=== PATIENT | male | born 1950 | race Caucasian/White ===

== ENCOUNTER 2019-04-09 04:59 | Inpatient (IN) | payer MEDICARE ==
[~2019-04-09] VITALS: Ht 175.3 cm; Wt 76.2 kg
[~2019-04-09 04:59] MED LIST: ALBU90OI INH; AMIT75; AMOCLA500 PO; ASCO500; ATEN100; ATEN50 PO; BUPR100; BUPR150ER PO; Bactrim Ds Tab1 EACH PO; CARV6.25 PO; CELE100; CEPH500 PO; CITA20 PO; CLON.5; CLON1 PO; Cephalexin500 MG PO; DOXY100 PO; FOLI1; HYDCHL25; HYDMOR8 PO; IBUP800 PO; Keflex500 MG PO; LISHYD2012 PO; LISHYD2025 PO; LISI5 PO; METH10; METH10 PO; METH40; METHOTREXATE; METTREX2.5; METTREX2.5 PO; NAPR500 PO; NEOPOLHYD OD; NIAC500ER; Nix Lice Treatm59 ML TOP; OXYACE5T PO; OXYACE7.5T PO; OXYC10ER; OXYC20ER; OXYC30; OXYC30 PO; OXYC5 PO; PENVK500 PO; PRED10 PO; PRED20 PO; PROM25; REMICADE; RXCEPH500 PO; RXSULTRIDS PO; SULTRIDS PO; TOBR.3OPSO OS; Vistaril25 MG PO; Zestril40 MG PO
[2019-04-09 07:27] LABS: BASOPHILS ABSOLUTE AUTO 0.04 K/mm3 (0.00-0.23); BASOPHILS PERCENT AUTO 0 % (0-2); EOSINOPHILS ABSOLUTE AUTO 0.89 K/mm3 (0.00-0.68); EOSINOPHILS PERCENT AUTO 5 % (0-6); Hematocrit 33.5 % (37.0-53.0); Hemoglobin 10.5 g/dL (13.5-17.5); IMMATURE GRAN ABSOLUTE AUTO 0.08 K/mm3 (0.00-0.10); IMMATURE GRAN PERCENT AUTO 1 % (0-1); LYMPHOCYTES ABSOLUTE AUTO 1.95 K/mm3 (0.84-5.20); LYMPHOCYTES PERCENT AUTO 12 % (21-46); MONOCYTES ABSOLUTE AUTO 1.24 K/mm3 (0.16-1.47); MONOCYTES PERCENT AUTO 7 % (4-13); Mean Corpuscular HGB 27.6 pg (26.0-34.0); Mean Corpuscular HGB Conc 31.3 g/dL (31.5-36.5); Mean Corpuscular Volume 88 fL (80-100); Mean Platelet Volume 9.6 fL (9.1-12.4); NEUTROPHILS ABSOLUTE AUTO 12.63 K/mm3 (1.96-9.15); NEUTROPHILS PERCENT AUTO 75 % (41-73); Platelet Count 302 K/mm3 (150-400); RDW Coefficient Variation 16.8 % (11.7-14.2); RDW Standard Deviation 54.6 fL (35.1-46.3); White Blood Cell Count 16.83 K/mm3 (4.00-11.30)
[2019-04-09 07:46] LABS: Albumin, Blood 2.4 g/dL (3.4-5.0); Albumin/Globulin Ratio 0.5 (0.8-1.8); Bilirubin, Total 0.1 mg/dL (0.1-1.0); Bun/Creatinine Ratio 19.9 (12.0-20.0); Calcium, Blood 7.8 mg/dL (8.5-10.1); Creatinine, Blood 1.36 mg/dL (0.60-1.20); Globulin, Blood 4.7 g/dL (2.2-4.0); Potassium, Blood 4.1 mmol/L (3.5-5.5); Total Protein, Blood 7.1 g/dL (6.4-8.2)
[2019-04-09 09:28] LABS: Percent Saturation 8.8 % (20.0-50.0)
[2019-04-09] MEDS ORDERED: CITA20 PO (12:25)
[2019-04-09] MEDS ORDERED: CARV25 PO (12:25)
--- NOTE | 2019-04-09 13:08 | NUR ---
CALLED PROVIDER CONSULT TO DERMATOLOGY, LEFT MESSAGE OFFICE IS CLOSED TODAY REQUESTED A CALL BACK TOMORROW MORNING.
--- NOTE | 2019-04-09 16:00 | NUR ---
SPOKE TO DR FORD- HE IS AWARE OF THE PT HOME USE OF ILLEGAL SUBSTANCES (PT STATES HEROIN). REQUESTED PAIN MEDCATION, MEDICATED WITH 2 NORCO, Q4 PER EMAR. DURG SCREENING ORDERED.
[2019-04-09 17:15] LABS: U Amphetamine Screen DETECTED; U Barbituate Screen Not Detected; U Benzodiazapine Screen Not Detected; U Buprenorphine Screen Not Detected; U Cannabinoids Screen Not Detected; U Cocaine Screen Not Detected; U Methadone Screen Not Detected; U Methamphetamine Screen DETECTED; U Opiates Screen DETECTED; U Oxycodone Screen Not Detected; U Phencyclidine Screen Not Detected; U Propoxyphene Screen Not Detected
--- NOTE | 2019-04-09 17:53 | NUR ---
CALLED DR FORD- PT BP ELEVATED ON ARRIVALSBP 175, SBP 188 ON RECHECK RECIEVED ORDER TO START HOME DOSE CARVEDILOL NOW AND FOR PRN HYDRALIZINE. PAIN IS OUT OF PERPORTION AT THIS TIME WILL MEDICATE PRN FOR PAIN WELL START TONIGHTS ANTIBIOTICS. PT ALERT AND ORIENTED, TOLD NURSING STAFF HE USES HEROIN TWICE A DAY SUB Q TO CONTROL HIS PAIN. DR IS AWARE URINE TOX SCREEN CAME BACK POSSITIVE FOR METH, ANPHETAMINES, AND OPIATES.
--- NOTE | 2019-04-09 18:00 | NUR ---
PT WANTS TO LEAVE AMA. PT STATES THE PAIN IS TOO MUCH AND HE WANTS TO GO DEAL WITH IT ON HIS OWN. PT IS SHAKING AND ROCKING AND ANGRY WITH STAFF. SPOKE TO DR FORD, AMA FORM FILLED OUT. PT SPOKE TO HIS SPOUSE WHO REQUESTED THAT STAFF TRY TO GET A DIFFERENT FORM OF PAIN MEDICATION. PT RECIEVED NORCO AND BP MEDICATION AND ALLOWED STAFF TO START IV ANTIBIOTICS.
--- NOTE | 2019-04-09 19:19 | NUR ---
SHIFT SUMMARY PT ADMITTED VIA ER AT 1230 FOR CELLULITIS. PT HAS SEVERE SKIN CONDITION UBE AND BLE. PT STATES THAT HE USES HEROIN SUBCUT TWO TIMES A DAY TO MANAGE PAIN AT HOME AND ALSO HAS RHEUMATOID ARTHRITIS. CONTACTED PROVIDER REGARDING INCREASED NEED FOR PAIN MEDS BECAUSE PT WAS IN SEVERE PN AND WANTED TO LEAVE AMA. RECIEVED ORDERS FOR INCREASED PN MEDS. LAST PN ASSESSMENT WAS 5 OUT OF TEN. BED LEFT IN LOW AND LOCKED POSITION AND CALL LIGHT WITHIN REACH. RACHNA PENDLETON GAVE CHANGE OF SHIFT REPORT TO AMISH PENDLETON.
--- NOTE | 2019-04-10 06:44 | NUR ---
SHIFT SUMMARY PT ANXIOUS IRRITABLE ABOUT PAIN MEDS. REQUIRING 2MG OF DILAUDID EVERY 2HRS AND PAIN GOES FROM 06/17 TO 03/17. DID NOT SLEEP THE WHOLE NIGHT, ONLY VERY LIGHT DOZING ON AND OFF. VERY DEFENSIVE AND STATES HE DIDN'T GET PAIN MEDS AFTER RECEIVING THEM SAYING IT WAS ONLY "SALINE". CALL LIGHT IN REACH.
[2019-04-10 09:08] LABS: BASOPHILS ABSOLUTE AUTO 0.03 K/mm3 (0.00-0.23); BASOPHILS PERCENT AUTO 0 % (0-2); EOSINOPHILS PERCENT AUTO 0 % (0-6); Hematocrit 30.4 % (37.0-53.0); Hemoglobin 9.6 g/dL (13.5-17.5); IMMATURE GRAN ABSOLUTE AUTO 0.14 K/mm3 (0.00-0.10); IMMATURE GRAN PERCENT AUTO 1 % (0-1); LYMPHOCYTES ABSOLUTE AUTO 1.34 K/mm3 (0.84-5.20); LYMPHOCYTES PERCENT AUTO 7 % (21-46); MONOCYTES ABSOLUTE AUTO 0.85 K/mm3 (0.16-1.47); MONOCYTES PERCENT AUTO 4 % (4-13); Mean Corpuscular HGB 27.2 pg (26.0-34.0); Mean Corpuscular HGB Conc 31.6 g/dL (31.5-36.5); Mean Corpuscular Volume 86 fL (80-100); Mean Platelet Volume 10.2 fL (9.1-12.4); NEUTROPHILS PERCENT AUTO 88 % (41-73); Platelet Count 276 K/mm3 (150-400); RDW Coefficient Variation 16.6 % (11.7-14.2); RDW Standard Deviation 51.8 fL (35.1-46.3); Red Blood Cell Count 3.53 M/mm3 (4.30-5.90); White Blood Cell Count 19.76 K/mm3 (4.00-11.30)
[2019-04-10 09:40] LABS: Alanine Aminotransfer (ALT/SGP 13 U/L (12-78); Albumin, Blood 2.4 g/dL (3.4-5.0); Albumin/Globulin Ratio 0.5 (0.8-1.8); Alk Phos 92 U/L (50-136); Anion Gap 5 mmol/L (6-16); Aspartate Aminotrans (AST/SGOT 7 U/L (12-37); Bilirubin, Total 0.4 mg/dL (0.1-1.0); Blood Urea Nitrogen 19 mg/dL (8-24); Bun/Creatinine Ratio 21.4 (12.0-20.0); CO2, Blood 25 mmol/L (21-32); Calcium, Blood 8.2 mg/dL (8.5-10.1); Chloride, Blood 109 mmol/L (98-108); Creatinine, Blood 0.89 mg/dL (0.60-1.20); Globulin, Blood 4.9 g/dL (2.2-4.0); Glomerular Filtration Rate >60 (60-); Glucose, Blood 116 mg/dL (70-99); Potassium, Blood 4.1 mmol/L (3.5-5.5); Sodium, Blood 139 mmol/L (136-145); Total Protein, Blood 7.3 g/dL (6.4-8.2)
--- NOTE | 2019-04-10 17:12 | NUR ---
SHIFT SUMMARY- PT AXO X3. PT C/O SEVERE BLE PAIN. MEDS GIVEN PER EMAR. PT DENIES SOB. RESP E/U ON RA. DENIES N/V. DR. BENJAMIN WISE IN TO SEE PT TODAY. DR. WISE REPORTS SHE WILL RETURN LATER TODAY OR TOMORROW AM WITH THE TOOLS NEEDED TO RULE OUT SCABBIES. 1 ASSIST TO THE BSC. NO OTHER SIGNIFICANT CHANGES THIS SHIFT.
[2019-04-11 04:47] LABS: BASOPHILS ABSOLUTE AUTO 0.03 K/mm3 (0.00-0.23); BASOPHILS PERCENT AUTO 0 % (0-2); EOSINOPHILS ABSOLUTE AUTO 0.02 K/mm3 (0.00-0.68); EOSINOPHILS PERCENT AUTO 0 % (0-6); Hematocrit 30.3 % (37.0-53.0); Hemoglobin 9.7 g/dL (13.5-17.5); IMMATURE GRAN ABSOLUTE AUTO 0.11 K/mm3 (0.00-0.10); IMMATURE GRAN PERCENT AUTO 1 % (0-1); LYMPHOCYTES ABSOLUTE AUTO 2.01 K/mm3 (0.84-5.20); LYMPHOCYTES PERCENT AUTO 9 % (21-46); MONOCYTES ABSOLUTE AUTO 1.44 K/mm3 (0.16-1.47); MONOCYTES PERCENT AUTO 7 % (4-13); Mean Corpuscular HGB 27.8 pg (26.0-34.0); Mean Corpuscular Volume 87 fL (80-100); Mean Platelet Volume 9.5 fL (9.1-12.4); NEUTROPHILS ABSOLUTE AUTO 18.41 K/mm3 (1.96-9.15); NEUTROPHILS PERCENT AUTO 84 % (41-73); Platelet Count 254 K/mm3 (150-400); RDW Coefficient Variation 16.9 % (11.7-14.2); RDW Standard Deviation 53.9 fL (35.1-46.3); Red Blood Cell Count 3.49 M/mm3 (4.30-5.90); White Blood Cell Count 22.02 K/mm3 (4.00-11.30)
[2019-04-11 05:09] LABS: Albumin, Blood 2.3 g/dL (3.4-5.0); Anion Gap 4 mmol/L (6-16); Blood Urea Nitrogen 19 mg/dL (8-24); Bun/Creatinine Ratio 20.4 (12.0-20.0); CO2, Blood 28 mmol/L (21-32); Chloride, Blood 107 mmol/L (98-108); Creatinine, Blood 0.93 mg/dL (0.60-1.20); Glomerular Filtration Rate >60 (60-); Glucose, Blood 73 mg/dL (70-99); Phosphorus, Blood 2.2 mg/dL (2.5-4.9); Potassium, Blood 3.7 mmol/L (3.5-5.5); Sodium, Blood 139 mmol/L (136-145)
--- NOTE | 2019-04-11 05:40 | NUR ---
SHIFT SUMMARY: PT ARRIVED AT END OF DAY SHIFT. HE WAS ALERT AND ORIENTED WITH FREQUENT SHORT PERIODS OF CONFUSION T/O THE NOC SHIFT. HX OF COPD, AND CHRONIC UTI'S. COMES IN FROM [facility]. MOTHER AND BROTHER WERE IN FOR SHORT PERIOD OF TIME DURING THE BEGINING OF SHIFT AND PLAN TO ARRIVE IN THE MORNING. PT WAS HUNGRY AT BEGINNING OF SHIFT AND ATE SOME SNACKS PRIOR TO MEDICATIONS. ADMISSION ASSESSMENT WAS COMPLETED. LUNG SOUNDS CLEAR T/O, WITH OCCATIONAL DRY COUGH. DENIED SOB. NO CARDIAC ISSUES TO NOTE. VS WNL T/O SHIFT AND NO PAIN. IV FLUIDS WERE STARTED AND INFUSED WELL T/O THE NIGHT INTO A 22G RIGHT HAND. WOUNDS ARE NOTED AND DOCUMENTED TO THE GREAT RIGHT TOE, FROM RUNNING INTO SOMETHING. WOUND IS SMALL MEASURES 0.25 X 0.25, WOUND HAS HYPERGRANULATION TISSUE, EDGES PINK WITH BRUISING NOTED AROUND AND ON THE SECOND TOE. WOUNDS ALSO ON COCCYX SHALLOW PINK MEASURES AN ESTIMATE OF 1 X 0.5 X 0.1 SURROUNDING TISSUE IS RED BUT BLANCHABLE. DRESSING WAS APPLIED ON TOE ONLY COCCYX WOUND IS MORE ON THE RIGHT NEAR ANAL OPENING, SO BARRIER CREAM IS SUGGESTED. CATHETER PATIENT WITH CLOUDY MUCUS LIKE URINE, SEDIMENT. ENCOURAGED HIM TO DRINK FLUIDS, HE HAS A HISTORY OF POOR INTAKE. AFTER BEDTIME MEDS HE SLEPT WELL THROUGHOUT THE NIGHT, AND DID NOT WANT TO BE DISTURBED UNTIL THIS AM. WILL REPORT TO DAY SHIFT RN.
--- NOTE | 2019-04-11 06:23 | NUR ---
SHIFT SUMMARY: PT WAS RESTING IN BED WATCHING TV MOST OF NIGHT. WAS COOPERATIVE AND PLEASANT UP TO THIS AM. VS WNL T/O SHIFT. PAIN WAS REPORTED ON THE DOT EVERY 2 HOURS FOR HIS DILAUDID. HE STATES THE PAIN IS IN HIS HANDS AND FEET. DENIED THIS RN FROM DOING ANYTHING TO HIS LEG CELLULITIS. LEFT LOWER LEG AND FOOT HAVE DRY CRACKING SKIN THAT IS PAINFUL. MULTIPLE CRACKS NOTED AROUND THE ANKLE. HE ALSO HAS CRACKING SKIN TO BILATERAL HANDS AND FA. SOAKED BILATERAL HANDS WITH WARM WATER AND MILD SOAP. TOWEL DRIED AND APPLIED BARRIER CREAM.THIS HELPED FOR SHORT PERIOD OF TIME, BUT THEN HE REPORTED THAT HE DRIED UP TO QUICK AND WANTED LOTION REAPPLIED BACK ON HANDS. THERE IS MULTIPLE CRACKS AND OPEN AREAS ON BILATERAL HANDS. HE DID COMPLAIN THAT PAIN MEDS DID NOT WORK WELL T/O THE NIGHT THAT HE WAS NOT GETTING THE JOHNSON AND WANTED ME TO FAST PUSH STRAIGHT THE PAIN MEDS, INFORMED HE THAT IS NOT HOW I WAS TAUGHT. HE WAS NOT PLEASED, BUT TOOK THE MEDS ANY WAY HE COULD GET THEM. NO OTHER ACUTE CHANGES WERE NOTED. WILL REPORT TO DAY SHIFT RN.
[2019-04-11 14:34] LABS: Vancomycin, Trough 8.5 ug/mL (5.0-10.0)
--- NOTE | 2019-04-11 17:39 | NUR ---
SUMMARY PT SITTING UP IN BED EATING HIS DINNER, PT HAS BEEN COOPERATIVE WITH [facility], PT MED FOR PAIN PER EMAR FREQUENTLY, PT WAS OFFERED A SHOWER SEVERAL TIMES BUT DECLINED, PT'S LLE SOAKED WITH A WARM WASHCLOTH AND COVERED LIBERALLY WITH CREAM, VSS, NO ACUTE CHANGES, WILL CONT TO MONITOR
[2019-04-12 05:17] LABS: BASOPHILS ABSOLUTE AUTO 0.02 K/mm3 (0.00-0.23); BASOPHILS PERCENT AUTO 0 % (0-2); EOSINOPHILS ABSOLUTE AUTO 0.04 K/mm3 (0.00-0.68); EOSINOPHILS PERCENT AUTO 0 % (0-6); Hematocrit 33.2 % (37.0-53.0); Hemoglobin 10.7 g/dL (13.5-17.5); IMMATURE GRAN PERCENT AUTO 1 % (0-1); LYMPHOCYTES ABSOLUTE AUTO 2.16 K/mm3 (0.84-5.20); LYMPHOCYTES PERCENT AUTO 12 % (21-46); MONOCYTES ABSOLUTE AUTO 1.36 K/mm3 (0.16-1.47); MONOCYTES PERCENT AUTO 7 % (4-13); Mean Corpuscular HGB 28.1 pg (26.0-34.0); Mean Corpuscular HGB Conc 32.2 g/dL (31.5-36.5); Mean Corpuscular Volume 87 fL (80-100); Mean Platelet Volume 9.5 fL (9.1-12.4); NEUTROPHILS ABSOLUTE AUTO 14.83 K/mm3 (1.96-9.15); NEUTROPHILS PERCENT AUTO 80 % (41-73); Platelet Count 253 K/mm3 (150-400); RDW Standard Deviation 54.2 fL (35.1-46.3); Red Blood Cell Count 3.81 M/mm3 (4.30-5.90); White Blood Cell Count 18.51 K/mm3 (4.00-11.30)
[2019-04-12 05:43] LABS: Albumin, Blood 2.4 g/dL (3.4-5.0); Anion Gap 5 mmol/L (6-16); Blood Urea Nitrogen 19 mg/dL (8-24); Bun/Creatinine Ratio 20.3 (12.0-20.0); CO2, Blood 28 mmol/L (21-32); Chloride, Blood 105 mmol/L (98-108); Creatinine, Blood 0.94 mg/dL (0.60-1.20); Glomerular Filtration Rate >60 (60-); Glucose, Blood 73 mg/dL (70-99); Phosphorus, Blood 2.7 mg/dL (2.5-4.9); Potassium, Blood 3.6 mmol/L (3.5-5.5); Sodium, Blood 138 mmol/L (136-145)
--- NOTE | 2019-04-12 07:14 | NUR ---
SHIFT SUMMARY: PATIENT REMAINED COOPERATIVE AND PLEASANT. HE DID NOT HAVE ANY ACUTE CHANGES OR CONCERNS. PATIENT DID CONTINUE TO PULL THE SKIN OFF HIS ARMS AND HANDS. HE WOULD NOT STOP. HAD APPLIED THE LOTION MULTIPLE TIMES. MEDICATED FOR PAIN EVERY 2 HOURS ON THE DOT PER ALEX VASQUEZ. DID REPORT PERIODS OF DIARRHEA SO HELD THE STOOL SOFTNER. NO OTHER ACUTE CHANGES TO NOTE, WILL REPORT TO ONCOMING RN.
[2019-04-12 16:14] LABS: Vancomycin, Trough 20.2 ug/mL (5.0-10.0)
--- NOTE | 2019-04-12 18:32 | NUR ---
SUMMARY PT SITTING UP IN BED WATCHING TV, PT HAS BEEN MED PER EMAR FOR PAIN FREQUENTLY, THIS EVENING HIS IV GOT PULLED OUT ACCIDENTALLY, IV MEDS HAVE BEEN CHANGED TO PO, PLAN IS TO DC IN AM, WILL CONT TO MONITOR
--- NOTE | 2019-04-12 20:03 | NUR ---
SHIFT CHANGE: PATIENT RESTING IN BED WATCHING TV. STATES HE IS FEELING OK, WANTS PAIN MEDS PAIN IS MORE ELEVATED THEN USUAL DUE TO PULLING IV OUT, STATES HE WISHED HE DIDNT DO THAT. STARTED TO DISCUSS PLAN FOR DISCHARGE AND PAIN MANAGMENT AT HOME, THAT AN IV MED IS NOT THE OPTION, SWITCHING TO PO MEDS WILL HELP HIM ADJUST. HE AGREED. STATES HE WILL LIKE A SHOWER TONIGHT. WILL INFORM NURSE PRACTITIONER MANAGER. PATIENT CONTINUES TO PICK AT THIS ARMS AND HANDS, ENCOURAGED HIM TO LET THEM HEAL ON THEIR OWN AND TO APPLY LOTION PRN. HE STATES HE CAN NOT STAND IT AND HAS TO GET THE DRY SKIN OFF. GAVE LOTION AND MEDS PER EMAR ALONG WITH PAIN MEDS. HE LAID BACK DOWN TO WATCH TV.
[2019-04-13 05:08] LABS: BASOPHILS ABSOLUTE AUTO 0.05 K/mm3 (0.00-0.23); BASOPHILS PERCENT AUTO 0 % (0-2); EOSINOPHILS ABSOLUTE AUTO 0.55 K/mm3 (0.00-0.68); EOSINOPHILS PERCENT AUTO 4 % (0-6); Hematocrit 37.7 % (37.0-53.0); Hemoglobin 11.6 g/dL (13.5-17.5); IMMATURE GRAN ABSOLUTE AUTO 0.13 K/mm3 (0.00-0.10); IMMATURE GRAN PERCENT AUTO 1 % (0-1); LYMPHOCYTES ABSOLUTE AUTO 1.97 K/mm3 (0.84-5.20); LYMPHOCYTES PERCENT AUTO 13 % (21-46); MONOCYTES ABSOLUTE AUTO 1.31 K/mm3 (0.16-1.47); MONOCYTES PERCENT AUTO 9 % (4-13); Mean Corpuscular HGB 27.1 pg (26.0-34.0); Mean Corpuscular HGB Conc 30.8 g/dL (31.5-36.5); Mean Corpuscular Volume 88 fL (80-100); Mean Platelet Volume 9.6 fL (9.1-12.4); NEUTROPHILS ABSOLUTE AUTO 11.34 K/mm3 (1.96-9.15); NEUTROPHILS PERCENT AUTO 74 % (41-73); Platelet Count 236 K/mm3 (150-400); RDW Coefficient Variation 17.2 % (11.7-14.2); RDW Standard Deviation 55.6 fL (35.1-46.3); Red Blood Cell Count 4.28 M/mm3 (4.30-5.90); White Blood Cell Count 15.35 K/mm3 (4.00-11.30)
[2019-04-13 05:24] LABS: Albumin, Blood 2.5 g/dL (3.4-5.0); Anion Gap 9 mmol/L (6-16); Blood Urea Nitrogen 24 mg/dL (8-24); Bun/Creatinine Ratio 19.7 (12.0-20.0); CO2, Blood 25 mmol/L (21-32); Calcium, Blood 7.8 mg/dL (8.5-10.1); Chloride, Blood 105 mmol/L (98-108); Creatinine, Blood 1.22 mg/dL (0.60-1.20); Glomerular Filtration Rate >60 (60-); Glucose, Blood 88 mg/dL (70-99); Phosphorus, Blood 3.9 mg/dL (2.5-4.9); Potassium, Blood 3.8 mmol/L (3.5-5.5); Sodium, Blood 139 mmol/L (136-145)
--- NOTE | 2019-04-13 06:08 | NUR ---
SHIFT SUMMARY: PATIENT RESTED OFF AND ON THROUGHOUT THE NIGHT, MEDICATED PER EMAR WITH PAIN MEDS EVERY 2 HOURS ON HIS REQUEST. HE DID HAVE AN 2 HOUR SHOWER AROUND 0100. WHICH HE APPARENTLY HAD TRIED TO REMOVE ALL THE DRIED SKIN OFF HIS HANDS AND ARMS, AND FEET. AGAIN ENCOURAGED HIM TO ALLOW NATURAL HEALING BUT HE CONTINUED. HE HAD NO ACUTE CHANGES OR CONCERNS THIS SHIFT. WILL REPORT TO ONCOMING SHIFT.
[2019-04-13] MEDS ORDERED: Bactrim Ds Tab1 EACH PO (09:25)
[2019-04-13] MEDS ORDERED: ACET325 PO (09:25)
[2019-04-13] MEDS ORDERED: Augmentin 875-1 EACH PO (09:25)
[2019-04-13] MEDS ORDERED: BISA5EC PO (09:26)
[2019-04-13] MEDS ORDERED: ASCO500 PO (09:26)
[2019-04-13] MEDS ORDERED: Triamcinolone A15 G3 TOP (09:28)
[2019-04-13] MEDS ORDERED: BENADRYL25 MG PO (09:30)
[2019-04-13] MEDS ORDERED: HYDMOR2 PO (09:31)
[2019-04-13] MEDS ORDERED: Ferrous Sulfat325 M2 PO (09:31)
[2019-04-13] MEDS ORDERED: NICO21TP TOP (09:32)
[2019-04-13] MEDS ORDERED: IBUP600 PO (09:32)
[2019-04-13] MEDS ORDERED: ONDA4ODT MM (09:33)
[2019-04-13] MEDS ORDERED: Florastor250 MG PO (09:35)
--- NOTE | 2019-04-13 11:32 | NUR ---
DISCHARGE SUMMARY PATIENT ESCORTED OUT VIA W/C WITH POLISHER BALANCE SCREWHEAD. AT BEDSIDE. RX OF DILAUDID GIVEN TO PATIENT. DISCHARGE ORDERS INCLUDING FOLLOW UP WITH PCP.
== END 2019-04-13 11:41 | disposition home or self-care (01) | DRG 602 ==
LOC: ER 04:59 → MEDS 09:48 → ENPENDDIS 04-16 08:29
PROVIDERS: Pharmacist; Physician Assistant; ADMIT Family Medicine
DX: L03.116 Cellulitis of left lower limb (principal); E43 Unspecified severe protein-calorie malnutrition; N17.9 Acute kidney failure, unspecified; L40.9 Psoriasis, unspecified; L26 Exfoliative dermatitis; D50.9 Iron deficiency anemia, unspecified; F32.9 Major depressive disorder, single episode, unspecified; F41.9 Anxiety disorder, unspecified; I12.9 Hypertensive chronic kidney disease with stage 1 through stage 4 chronic kidney disease, or unspecified chronic kidney disease; N18.3 Chronic kidney disease, stage 3 (moderate); F19.10 Other psychoactive substance abuse, uncomplicated; M06.9 Rheumatoid arthritis, unspecified; F17.210 Nicotine dependence, cigarettes, uncomplicated; Z86.19 Personal history of other infectious and parasitic diseases; Z59.0 Homelessness; Z68.29 Body mass index [BMI] 29.0-29.9, adult
CPT/HCPCS: 36415; 80053; 80069; 80202; 83540; 83550; 83605; 85025; 87040; 96365; 96366; 96375; 99284-25; A9270-GY; J1170; J1200; J1650; J2543; J2930; J3370; J7030; J7050; J7512; Q0163

== ENCOUNTER 2019-04-28 21:11 | Emergency (ER) | payer MEDICARE ==
[~2019-04-28] VITALS: Ht 175.3 cm; Wt 74.8 kg
[~2019-04-28 21:11] MED LIST changes: +ACET325 PO; +ASCO500 PO; +Augmentin 875-1 EACH PO; +BENADRYL25 MG PO; +BISA5EC PO; +CARV25 PO; +Ferrous Sulfat325 M2 PO; +Florastor250 MG PO; +HYDMOR2 PO; +IBUP600 PO; +NICO21TP TOP; +ONDA4ODT MM; +Triamcinolone A15 G3 TOP
[2019-04-28 23:20] LABS: BASOPHILS ABSOLUTE AUTO 0.04 K/mm3 (0.00-0.23); BASOPHILS PERCENT AUTO 0 % (0-2); EOSINOPHILS ABSOLUTE AUTO 0.42 K/mm3 (0.00-0.68); EOSINOPHILS PERCENT AUTO 3 % (0-6); Hematocrit 30.5 % (37.0-53.0); Hemoglobin 9.3 g/dL (13.5-17.5); IMMATURE GRAN ABSOLUTE AUTO 0.06 K/mm3 (0.00-0.10); IMMATURE GRAN PERCENT AUTO 0 % (0-1); LYMPHOCYTES ABSOLUTE AUTO 1.31 K/mm3 (0.84-5.20); LYMPHOCYTES PERCENT AUTO 8 % (21-46); MONOCYTES ABSOLUTE AUTO 0.78 K/mm3 (0.16-1.47); MONOCYTES PERCENT AUTO 5 % (4-13); Mean Corpuscular HGB 27.5 pg (26.0-34.0); Mean Corpuscular HGB Conc 30.5 g/dL (31.5-36.5); Mean Corpuscular Volume 90 fL (80-100); Mean Platelet Volume 9.5 fL (9.1-12.4); NEUTROPHILS ABSOLUTE AUTO 12.97 K/mm3 (1.96-9.15); NEUTROPHILS PERCENT AUTO 83 % (41-73); Platelet Count 336 K/mm3 (150-400); RDW Coefficient Variation 17.7 % (11.7-14.2); RDW Standard Deviation 58.4 fL (35.1-46.3); Red Blood Cell Count 3.38 M/mm3 (4.30-5.90); White Blood Cell Count 15.58 K/mm3 (4.00-11.30)
[2019-04-28 23:38] LABS: Albumin, Blood 2.2 g/dL (3.4-5.0); Albumin/Globulin Ratio 0.5 (0.8-1.8); Bilirubin, Total 0.2 mg/dL (0.1-1.0); Bun/Creatinine Ratio 18.5 (12.0-20.0); Creatinine, Blood 1.46 mg/dL (0.60-1.20); Globulin, Blood 4.4 g/dL (2.2-4.0); Potassium, Blood 4.8 mmol/L (3.5-5.5); Total Protein, Blood 6.6 g/dL (6.4-8.2)
[2019-04-29] MEDS ORDERED: Triamcinolone A15 G3 TOP (00:03)
[2019-04-29] MEDS ORDERED: Ferrous Sulfat325 MG PO (00:03)
== END 2019-04-29 01:29 | disposition home or self-care (01) ==
LOC: ER 21:11
PROVIDERS: Emergency Medicine
DX: L30.9 Dermatitis, unspecified (principal); D50.9 Iron deficiency anemia, unspecified; Z88.8 Allergy status to other drugs, medicaments and biological substances; Z79.899 Other long term (current) drug therapy; F17.210 Nicotine dependence, cigarettes, uncomplicated
CPT/HCPCS: 36415; 80053; 85025; 96361; 96374; 99283-25; J1885; J7030

== ENCOUNTER 2019-07-08 00:02 | Inpatient (IN) | payer MEDICARE ==
[~2019-07-08] VITALS: Ht 170.2 cm; Wt 65.8 kg
[~2019-07-08 00:02] MED LIST changes: +Ferrous Sulfat325 MG PO
[2019-07-08 00:50] LABS: BASOPHILS ABSOLUTE AUTO 0.05 K/mm3 (0.00-0.23); BASOPHILS PERCENT AUTO 0 % (0-2); EOSINOPHILS PERCENT AUTO 0 % (0-6); Hematocrit 40.1 % (37.0-53.0); Hemoglobin 12.6 g/dL (13.5-17.5); IMMATURE GRAN ABSOLUTE AUTO 0.12 K/mm3 (0.00-0.10); IMMATURE GRAN PERCENT AUTO 1 % (0-1); LYMPHOCYTES ABSOLUTE AUTO 1.01 K/mm3 (0.84-5.20); LYMPHOCYTES PERCENT AUTO 4 % (21-46); MONOCYTES ABSOLUTE AUTO 1.41 K/mm3 (0.16-1.47); MONOCYTES PERCENT AUTO 6 % (4-13); Mean Corpuscular HGB 28.1 pg (26.0-34.0); Mean Corpuscular HGB Conc 31.4 g/dL (31.5-36.5); Mean Corpuscular Volume 89 fL (80-100); Mean Platelet Volume 10.3 fL (9.1-12.4); NEUTROPHILS ABSOLUTE AUTO 20.82 K/mm3 (1.96-9.15); NEUTROPHILS PERCENT AUTO 89 % (41-73); Platelet Count 222 K/mm3 (150-400); RDW Coefficient Variation 16.8 % (11.7-14.2); RDW Standard Deviation 56.4 fL (35.1-46.3); Red Blood Cell Count 4.49 M/mm3 (4.30-5.90); White Blood Cell Count 23.51 K/mm3 (4.00-11.30)
[2019-07-08 01:10] LABS: Albumin, Blood 2.8 g/dL (3.4-5.0); Albumin/Globulin Ratio 0.6 (0.8-1.8); Bilirubin, Total 0.3 mg/dL (0.1-1.0); Bun/Creatinine Ratio 17.2 (12.0-20.0); Calcium, Blood 8.6 mg/dL (8.5-10.1); Creatinine, Blood 1.28 mg/dL (0.60-1.20); Globulin, Blood 4.9 g/dL (2.2-4.0); Potassium, Blood 3.5 mmol/L (3.5-5.5); Total Protein, Blood 7.7 g/dL (6.4-8.2)
[2019-07-08 01:15] LABS: Calcium, Ionized (POC) 1.07 mmol/L (1.10-1.46); Chloride (POC) 101 mmol/L (98-108); Creatinine (POC) 1.5 mg/dL (0.8-1.3); Glucose (ISTAT POC) 98 mg/dL (70-99); Hemoglobin (POC) 15.3 g/dL (13.5-17.5); Potassium (POC) 3.6 mmol/L (3.5-5.5); Sodium (POC) 137 mmol/L (135-148); Total CO2 (POC) 28 mmol/L (21-32)
--- NOTE | 2019-07-08 05:06 | NUR ---
PCU ADMIT / SHIFT SUMMARY PT BROUGHT TO PCU RM 08 FROM THE ER @ APPROX 0330 BY TEN. PT A&O X4. PT SLID OVER FROM [facility] TO U BED D/T PT DIFFICULTY AMBULATING. PT REPORTS USING CANE AT BASELINE W/ AMBULATION BEING DIFFICULT AND PAINFUL D/T PAINFUL FEET AND WEAKNESS. PT'S TOES NOTED TO CROSS OVER EACH OTHER. SKIN OF BILAT ARMS AND LEGS DISCOLORED T/O. L CHEST WALL ABSCESS OOZING THICK BLOODING DISCHARGE. WOUND CLEANSED AND DRESSED UPON ADMIT. PT VSS. LUNG SOUNDS CLEAR. SPO2 > 92% ON RA. MONITOR SHOWS NSR, HR 80'S. PT REPORTS SMOKING 1/2 PACK CIGARETTES A DAY AND USING HEROIN. SURGERY CONSULT CALLED TO ANSWERING SERVICE PER MD ORDERS. PT IN BED W/ CALL LIGHT IN REACH. WILL CONTINUE TO MONITOR AND PROVIDE CARE UNTIL REPORT OFF TO DAY SHIFT RN.
[2019-07-08 05:24] LABS: Source, Urine Clean Catch
[2019-07-08 05:32] LABS: Bilirubin, Urine Neg (Neg); Blood, Urine 2+ (Neg); Glucose Qualitative, Urine Neg (Neg); Ketones, Urine Neg (Neg); Leukocyte Esterase, Urine Neg (Neg); Nitrite, Urine Neg (Neg); Protein, Urine 2+ (Neg); Urobilinogen, Urine 1+ (Normal)
[2019-07-08 05:42] LABS: Appearance, Urine Clear (Clear); Color, Urine Yellow (P-Yellow); U Amphetamine Screen DETECTED; U Barbituate Screen Not Detected; U Benzodiazapine Screen Not Detected; U Cannabinoids Screen DETECTED; U Cocaine Screen Not Detected; U Methadone Screen Not Detected; U Methamphetamine Screen DETECTED; U Opiates Screen DETECTED; U Phencyclidine Screen Not Detected
[2019-07-08 05:43] LABS: U Buprenorphine Screen Not Detected; U Oxycodone Screen Not Detected; U Propoxyphene Screen Not Detected
[2019-07-08 05:45] LABS: Bacteria Not Seen /hpf; Squamous Epithelial Cells Not Seen /hpf (Few); White Blood Cells, Urine 0-2 /hpf (0-5)
--- NOTE | 2019-07-08 09:56 | NUR ---
PCU DAYSHIFT ASSUMED CARE OF PT APPROX 0700. PT A&OX4. PT VITAL SIGNS STABLE. ASSESSMENT COMPLETED. ABSESS NOTED ON UPPER LEFT CHEST. REDNESS AND SWELLING NOTED. ABCESS HAS A MODERATE AMOUNT OF DRAINAGE AT THIS TIME. WITH PUSS COMING OUT OF WOUND WHEN PRESSING IN AREA. PT REPORTS THIS AREA TO BE "EXTREMLY TENDER". PT REPROTS CHRONIC PAIN FROM R.A. IN LEGS AND ARMS. SKIN DISCOLORATION NOTED ON ALL EXTREMITIES THAT PT REPORTS IS NORMALLY THERE. PRN PAIN MEDICAITON GIVEN PER EMAR. SURGEON IN TO SEE PT THIS MORNING. HE WAS ABLE TO DRAIN PUSS OUT OF ABCESS AND FLUSH WITH SALINE. ROYCERZAIDON STATES THAT HE WANTS PT TO SHOWER THIS AFTERNOON AND LET THE SOAP WATER RUN OVER ABCESS. TALKED WITH PT ABOUT IMPORTANCE OF STAYING AND CONTINUING TO RECIEVE TREATMENT FROM ABCESS. PT REPORTS THAT HE DOES NOT WANT TO STAY BUT WILL STAY FOR NOW. BED IN LOW POSITION, CALL LIGHT IN REACH AND PT DENIES ANY NEEDS. WILL CONTINUE TO MONITOR.
--- NOTE | 2019-07-08 10:09 | NUR ---
NOTE NOTED THAT MATTHEWS UNDER PATIENT GOT WET FROM SALINE WHILE SURGEON WAS DRAINING ABCESS. WAS GOING TO CHANGE THIS OUT. BROUGHT SUPPLIES INTO ROOM AND PT REFUSED TO HAVE THIS CHANGED. HE REPROTS HE DOES NOT WANT TO MOVE AROUND AND WOULD RATHER LAY ON THE WET BEDDING. EDUCATED PT ON WHY IT WAS IMPROTANT TO CHANGE AND PT REPROTS HE DOES NOT CARE AND WANTS TO BE LEFT ALONE. WILL CONTINUE TO MONITOR
--- NOTE | 2019-07-08 17:37 | NUR ---
SHIFT SUMMARY PT PLEASANT, COOPERATIVE AND USES CALL LIGHT APPROPRIATELY. PT REMAINS A&OX4. VITAL SIGNS REMAIN STABLE. ASSESSMENT FINDINGS REMAIN UNCHANGED. ALTHOUGH ABSCESS ON LEFT UPPER CHEST HAS DECREASED SWELLING SINCE SURGEON CLEANED AND DRAINED IT. PT WAS ABLE TO GET UP TO SHOWER AROUND 1630 AND WAS ABLE TO SHOWER AND LET WATER AND SOAP OVER ABSCESS PER SURGEON ORDERS. PT SLIGHTLY IRRITABLE AT TIMES. BUT APOLOGIZED AFTER AND REPORTS HE WAS JUST EDMUNDO SLEEPY. PT ABLE TO SLEEP OFF AND ON TODAY. PT REPROTS FEELING ALOT BETTER AFTER SHOWER. PT BACK IN BED. BED IN LOW POSITION, CALL LIGHT IN REACH AND PT DENIES ANY NEEDS. WILL CONTINUE TO MONIOTR UNTIL HANDOFF TO NIGHTSHIFT RN.
[2019-07-09 03:56] LABS: BASOPHILS ABSOLUTE AUTO 0.04 K/mm3 (0.00-0.23); BASOPHILS PERCENT AUTO 0 % (0-2); EOSINOPHILS ABSOLUTE AUTO 0.31 K/mm3 (0.00-0.68); EOSINOPHILS PERCENT AUTO 2 % (0-6); Hematocrit 38.6 % (37.0-53.0); Hemoglobin 11.9 g/dL (13.5-17.5); IMMATURE GRAN ABSOLUTE AUTO 0.05 K/mm3 (0.00-0.10); IMMATURE GRAN PERCENT AUTO 0 % (0-1); LYMPHOCYTES ABSOLUTE AUTO 1.28 K/mm3 (0.84-5.20); LYMPHOCYTES PERCENT AUTO 8 % (21-46); MONOCYTES ABSOLUTE AUTO 0.75 K/mm3 (0.16-1.47); MONOCYTES PERCENT AUTO 5 % (4-13); Mean Corpuscular HGB 27.7 pg (26.0-34.0); Mean Corpuscular HGB Conc 30.8 g/dL (31.5-36.5); Mean Corpuscular Volume 90 fL (80-100); Mean Platelet Volume 10.9 fL (9.1-12.4); NEUTROPHILS ABSOLUTE AUTO 14.07 K/mm3 (1.96-9.15); NEUTROPHILS PERCENT AUTO 85 % (41-73); Platelet Count 185 K/mm3 (150-400); RDW Coefficient Variation 16.8 % (11.7-14.2); RDW Standard Deviation 55.7 fL (35.1-46.3); Red Blood Cell Count 4.29 M/mm3 (4.30-5.90)
--- NOTE | 2019-07-09 03:56 | NUR ---
SHIFT SUMMARY PT A&O X4. VSS. L CHEST ABSCESS CONTINUES TO HAVE MODERATE AMOUNT OF BLOOD TINGED, THICK LOVE DRAINAGE. WOUND CLEANSED W/ WOUND CLEANSER SPRAY AND REDRESSED W/ GAUZE AND MEPILEX DRESSING. PT C/O PAIN IN REGION OF L CHEST WALL ABSCESS WELL L SHOULDER & L HIP. PT MEDICATED PER EMAR/PT REQUEST. PT REPORTS "PAIN MEDICATION DOES NOTHING." PT STATES "NOTHING HELPS" WHEN EXPLORING ALTERNATIVE PAIN MANAGEMENT APPROACHES. REPORT FROM LAB OF FIRST (+) BLOOD CX THIS SHIFT, AWAITING RESULTS OF 2ND BLOOD CX. WILL CONTINUE TO MONITOR AND PROVIDE CARE UNTIL REPORT OFF TO DAY SHIFT RN.
[2019-07-09 04:17] LABS: Anion Gap 7 mmol/L (6-16); Blood Urea Nitrogen 13 mg/dL (8-24); Bun/Creatinine Ratio 17.6 (12.0-20.0); CO2, Blood 26 mmol/L (21-32); Calcium, Blood 8.4 mg/dL (8.5-10.1); Chloride, Blood 107 mmol/L (98-108); Creatinine, Blood 0.74 mg/dL (0.60-1.20); Glomerular Filtration Rate >60 (60-); Glucose, Blood 70 mg/dL (70-99); Potassium, Blood 3.8 mmol/L (3.5-5.5); Sodium, Blood 140 mmol/L (136-145)
--- NOTE | 2019-07-09 08:34 | NUR ---
PCU DAYSHIFT ASSUMED CARE OF PT APPROX. 0700. PT A&OX4. PT IRRITABLE. UPON ENTERING THE ROOM TALKED WITH PT ABOUT WHY HE WAS FRUSTRATED. HE STATED HE HURTS AND HE IS MISERABLE. UPON APPROACHING PT TO TAKE VITAL SIGNS PT STOPPED ME AND STATED THAT HE DOES NOT WANT TO BE TOUCHED, HE DOES NOT WANT ME TO TAKE HIS VITAL SIGNS OR TO "MESS WITH HIM" THIS MORNING. EDUCATED ON IMPORTANCE OF COMPLETING THESE TASKS AND PT STATES THAT HE DOES NOT CARE. HE STATES THAT HE IS LIKELY TO LEAVE TODAY TO GO HOME AND USE HIS HEROIN TO HELP TAKE THE PAIN AWAY. EDUCATED ON RISKS OF THIS AND IMPORTANCE OF STAYING HERE AND GET ABCESS HEALED. HE CONTINUES TO STATED, MORE IRRITABLY, THAT HE DOES NOT WANT TO BE TOUCHED AND REFUSED COMPLETION OF ASSESSMENT AND VITAL SIGNS. PT AGREED TO HAVE IV ANTIBITOTIC STARTED AND STATES HE WILL LET THAT COMPLETE THIS MORNING. PT REPORTS NAUSEA THIS MORNING. BED IN LOW POSITION, CALL LIGHT IN REACH AND PT DENIES ANY NEEDS, OTHER THAN TO LEAVE HERE. WILL CONTINUE TO MONITOR.
--- NOTE | 2019-07-09 10:19 | NUR ---
SURGEON TO SEE PT SURGEON IN TO SEE PT AT THIS TIME. PT AGREED TO LET SURGEON LOOK AT ABCESS. DRESSING WAS REMOVED TO LOOK AT WOUND. WOUND LOOKS MUCH BETTER FROM YESTERDAY. AREA AROUND WOUND IS LESS RED TODAY. THERE IS LESS PUSS COMING OUT OF WOUND AND WOUND LESS SWOLLEN. SURGEON STATES THAT PT NEEDS TO SHOWER AGAIN TODAY AND LET WATER RUN ONTO AREA. WILL CONTINUE TO MONITOR
--- NOTE | 2019-07-09 13:12 | NUR ---
PMD PMD IN TO SEE PT THIS MORNING. WAS ABLE OT BE IN ROOM AND ENSURE PT UNCONTROLLE DPAIN WAS DISCSSED WITH PMD. ALSO DISCUSSED LOOSE STOOLS. PMD REPORTS HE WILL PUT IN ORDERS. NEW ORDERS RECIEVED. WILL TRY NEW MEDICATIONS AND SEE IF PT PAIN CAN BE MORE TOLAERABLE
--- NOTE | 2019-07-09 16:25 | NUR ---
NOTE PT ABLE TO GET SOME REST WITH NEW MEDICATIONS. WILL CONTINUE TO MONITOR.
--- NOTE | 2019-07-09 19:02 | NUR ---
SHIFT SUMMARY THE DAY PROGRESSED PT BECAME MORE PLEASANT. NEW MEDICATIONS HELPED PT TO GET SOME REST AND HELPED PT TO BE MORE PLEASANT. PT CONTINUED TO REFUSED CERTAIN CARE BY STAFF. PT CONTINUED TO REFUSE VITAL SIGNS. PT AGREED TO DO VITAL SIGNS BEFORE GETTING PAIN MEDICAITONS. PT ABLE TO SLEEP THIS EVENING. PT HAD INCREASED NAUSEA INTERMITENTLY BUT DECLINED ANY PRN NAUSEA MEDICATIONS. PT CURRENLTY IN BED. BED IN LOW POSITION, CALL LIGHT IN REACH AND PT DENIES ANY NEEDS. NOTIFIED ONCOMING SHIFT OF PT IN NEED OF SHOWER THIS EVENING. XOCHITL MONITOR UNTIL HANDOFF TO NIGHTSHIFT RN.
[2019-07-09 22:21] LABS: Vancomycin, Trough 7.9 ug/mL (5.0-10.0)
--- NOTE | 2019-07-09 22:31 | NUR ---
TRANSFER NOTE PT MEDICAL NO TELE STATUS. A&O X4. PT CALM AND COOPERATIVE AT THIS TIME, EPISODES OF IRRITABILITY AND ANXIETY. PT C/O 6/10 PAIN TO LOWER BACK AND L CHEST WELL ABSCESS. PT MEDICATED FOR PAIN PER EMAR/PT REQUEST. L CHEST WALL ABSCESS CONTINUES TO DRAIN THICK LOVE DISCHARGE. MD MORALES RECOMMENDING PT TO SHOWER AND CLEANSE SITE IN SHOWER. PT ENCOURAGED TO SHOWER BUT CONTINUES TO REFUSE, STATING "I JUST CAN'T AT THIS TIME." WOUND CLEANSED W/ WOUND CLEANSER SPRAY AND REDRESSED W/ MEPILEX. PT ENCOURAGED TO SHOWER WHEN PT FEELS READY. CREAM APPLIED TO BILAT ARMS AND LEGS PER EMAR. SKIN NOTED TO BE DISCOLORED T/O ARMS AND LEGS. PT REPORTS AMBULATION TO BE PAINFUL D/T WORSENING ARTHRITIS, STATING HE FORESEES HAVING TO USE A WHEELCHAIR TO GET AROUND SOON INSTEAD OF HIS CURRENT CANE USE. DEFORMITIES NOTED TO PT'S HANDS AND TOES ON BILAT FEET. REPORT CALLED TO MEDICAL FLOOR RN @ APPROX 2220. PT BEING TRANSFERRED TO RM 324 BY WHEELCHAIR AT THIS TIME.
--- NOTE | 2019-07-09 23:15 | NUR ---
REPORT RECIEVED FROM BRANDI DÍAZU RN AT 221 AND PT T/F VIA W/C TO ROOM 324 AT 2236. PT ORIENTED TO ROOM AND CALL SYSTEM W/CALL LIGHT, URINAL AND BELONGINGS IN REACH. HE IS A/OX4, PLEASANT AND COOPERATIVE W/CARE AND MEPILEX DX TO L.CHEST ABSESS IS C/D/I. NS AT TKO COMMENCED AND VANCO STARTED. BENEDRYL PROVIDED FOR SLEEP/ITCHING AND TYLENOL RECIEVED FOR CONT'D ABSESS SITE PAIN, WILL MONITOR FOR EFFECT. HE DENIED NEEDS OTHERWISE AND IS CURRENTLY RESTING COMFORTABLY IN BED. I AGREE TO ARJUN'S NOCTE SHIFT ASSESSMENT FINDINGS AND PT CONT'S TO REFUSE SCD'S.
--- NOTE | 2019-07-10 03:58 | NUR ---
SUMMARY: PT IS A/OX4, SBA OOB W/CANE OR FWW AND CALLS TO SPECIFY NEEDS. HE HAS SLEPT MOST OF NOCTE SINCE PCU T/F TO FLOOR AND USED URINAL IN BED. STOOL PANEL IS STILL NEEDED BUT PT HASN'T HAD ANY FURTHER DIARRHEA SINCE ARRIVAL. HE WAS MEDICATED W/BENADRYL AND XANAX PRN X1 FOR SLEEP/ANXIETY AND WAS GIVEN TORADOL AND TYLENOL X1 PRN FOR TOLERABLE RELIEF OF L. CHEST WALL ABSESS PAIN. DX TO SITE REMAINS C/D/I AND WAS CHANGED IN PCU AFTER WOUND IRRIGATION WAS PERFORMED PRIOR TO T/F. NO DRAINAGE NOTED AT THIS TIME BUT IT WAS REPORTED THICK LOVE DRAINAGE. NS IS AT TKVO AND VANCOMYCIN WAS RECIEVED. SKIN DISCOLORATION NOTED T/O ARMS/LEGS W/DEFORMITIES OBSERVED TO HANDS/FEEF FROM RA. HE'S BEEN PLEASANT AND COOPERATIVE W/CARE. NO ACUTE CHANGES, VSS/AFEBRILE. WCTM/REPORT TO DAY RN.
[2019-07-10] MEDS ORDERED: CEPH500 PO (09:20)
--- NOTE | 2019-07-10 13:36 | NUR ---
PT DCD HOME. WOUND CARE TO LEFT SIDE OF CHEST WAS COMPLETED ALONG WITH PT EDUCATION ON HOW TO CARE FOR SITE AND KEEP IT CLEAN. MED ORDERS WERE FAXED TO [facility] PER PT REQUEST. ALL MED ORDERS AND DC INSTRUCTIONS WERE REVIWED WITH PT WHO VERBALIZED AN UNDERSTANDING. PT DID NOT HAVE MONEY OR A RIDE HOME SO THE NURSING VOLUNTEER MANAGER APPROVED A [employer] RIDE HOME FOR HIM AND THEY CAME TO HIS ROOM AND PICKED HIM UP IN A W/C. ALL PT PERSONAL BELONGINGS WERE SENT WITH PT. PT STABLE UPON DC.
== END 2019-07-10 13:33 | disposition home or self-care (01) | DRG 872 ==
LOC: ER 00:02 → PCU 03:26 → MEDS 03:27 → PCU 03:30 → MEDS 07-09 22:39 → ENPENDDIS 07-10 08:45 → MEDS 07-10 13:33
PROVIDERS: Emergency Medicine; Internal Medicine; ADMIT Family Medicine
PROC: 0W9F3ZZ Drainage of Abdominal Wall, Percutaneous Approach (ICD-10-PCS; principal; 2019-07-08)
DX: A41.01 Sepsis due to Methicillin susceptible Staphylococcus aureus (principal); N17.9 Acute kidney failure, unspecified; L02.213 Cutaneous abscess of chest wall; F11.23 Opioid dependence with withdrawal; L03.311 Cellulitis of abdominal wall; R65.20 Severe sepsis without septic shock; I12.9 Hypertensive chronic kidney disease with stage 1 through stage 4 chronic kidney disease, or unspecified chronic kidney disease; F17.210 Nicotine dependence, cigarettes, uncomplicated; M06.9 Rheumatoid arthritis, unspecified; N18.3 Chronic kidney disease, stage 3 (moderate); F32.9 Major depressive disorder, single episode, unspecified; D63.1 Anemia in chronic kidney disease
CPT/HCPCS: 10060; 36415; 71045; 71260; 80047; 80048; 80053; 80202; 81001; 83605; 84484; 85014; 85025; 87040; 87070; 87075; 87077; 87186; 87205; 93005; 93010; 96361-59; 96365-59; 96368; 96375-59; 99285-25; A9270; G0480; J0696; J1885; J2405; J2543; J3370; J7050; J7120; Q0163; Q9967

== ENCOUNTER → 2020-10-26 | Outpatient (CLI) | payer MEDICARE | END | disposition home or self-care (01) | LOC: LAB 19:06 → LAB SHORT 19:06 | DX: L03.116 Cellulitis of left lower limb (principal) | CPT/HCPCS: 87070; 87077; 87147; 87186; 87205 ==

== ENCOUNTER → 2021-02-14 | Outpatient (CLI) | payer MEDICARE | END | disposition home or self-care (01) | LOC: LAB 12:40 → LAB HH 12:40 → LAB SHORT 12:40 | DX: L97.821 Non-pressure chronic ulcer of other part of left lower leg limited to breakdown of skin (principal); L03.116 Cellulitis of left lower limb | CPT/HCPCS: 87070; 87205 ==

== ENCOUNTER → 2021-03-25 | Outpatient (CLI) | payer MEDICARE ==
[2021-03-25 15:59] LABS: Creatinine, Blood 1.27 mg/dL (0.60-1.20); Potassium, Blood 4.2 mmol/L (3.5-5.5)
== END | disposition home or self-care (01) ==
LOC: LAB HH 13:57
PROVIDERS: Family Medicine
DX: I11.0 Hypertensive heart disease with heart failure (principal); I50.32 Chronic diastolic (congestive) heart failure; R60.9 Edema, unspecified
CPT/HCPCS: 80048

== ENCOUNTER 2021-05-15 01:48 | Day surgery (SDC) | payer MEDICARE | END 2021-05-15 23:55 | disposition home or self-care (01) | LOC: WOUND 01:48 | DX: L97.822 Non-pressure chronic ulcer of other part of left lower leg with fat layer exposed (principal); I87.2 Venous insufficiency (chronic) (peripheral); I73.9 Peripheral vascular disease, unspecified; M05.79 Rheumatoid arthritis with rheumatoid factor of multiple sites without organ or systems involvement; J44.9 Chronic obstructive pulmonary disease, unspecified; Z87.891 Personal history of nicotine dependence; Z88.1 Allergy status to other antibiotic agents | CPT/HCPCS: A9270; G0463 ==

== ENCOUNTER 2021-05-22 00:30 | Day surgery (SDC) | payer MEDICARE | END 2021-05-22 23:05 | disposition home or self-care (01) | LOC: WOUND 00:30 | DX: L97.822 Non-pressure chronic ulcer of other part of left lower leg with fat layer exposed (principal); M05.79 Rheumatoid arthritis with rheumatoid factor of multiple sites without organ or systems involvement; I87.2 Venous insufficiency (chronic) (peripheral); S81.809A Unspecified open wound, unspecified lower leg, initial encounter; X58.XXXA Exposure to other specified factors, initial encounter; I73.9 Peripheral vascular disease, unspecified; J44.9 Chronic obstructive pulmonary disease, unspecified | CPT/HCPCS: A9270 ==

== ENCOUNTER 2021-06-12 02:01 | Day surgery (SDC) | payer MEDICARE | END 2021-06-12 23:00 | disposition home or self-care (01) | LOC: WOUND 02:01 | DX: L97.822 Non-pressure chronic ulcer of other part of left lower leg with fat layer exposed (principal); M05.79 Rheumatoid arthritis with rheumatoid factor of multiple sites without organ or systems involvement; I87.2 Venous insufficiency (chronic) (peripheral); I73.9 Peripheral vascular disease, unspecified | CPT/HCPCS: A9270 ==

== ENCOUNTER 2021-06-19 08:00 | Day surgery (SDC) | payer MEDICARE | END 2021-06-19 23:59 | disposition home or self-care (01) | LOC: WOUND 08:00 | DX: L97.822 Non-pressure chronic ulcer of other part of left lower leg with fat layer exposed (principal); M05.79 Rheumatoid arthritis with rheumatoid factor of multiple sites without organ or systems involvement; I87.2 Venous insufficiency (chronic) (peripheral); I73.9 Peripheral vascular disease, unspecified; J44.9 Chronic obstructive pulmonary disease, unspecified; Z88.1 Allergy status to other antibiotic agents | CPT/HCPCS: A9270 ==

== ENCOUNTER 2021-06-26 04:07 | Day surgery (SDC) | payer MEDICARE | END 2021-06-26 23:33 | disposition home or self-care (01) | LOC: WOUND 04:07 | DX: L97.821 Non-pressure chronic ulcer of other part of left lower leg limited to breakdown of skin (principal); M05.79 Rheumatoid arthritis with rheumatoid factor of multiple sites without organ or systems involvement; I87.2 Venous insufficiency (chronic) (peripheral); I73.9 Peripheral vascular disease, unspecified; M06.9 Rheumatoid arthritis, unspecified; J44.9 Chronic obstructive pulmonary disease, unspecified | CPT/HCPCS: A9270 ==

== ENCOUNTER 2021-07-03 01:51 | Day surgery (SDC) | payer MEDICARE | END 2021-07-03 23:33 | disposition home or self-care (01) | LOC: WOUND 01:51 | DX: L97.822 Non-pressure chronic ulcer of other part of left lower leg with fat layer exposed (principal); M06.9 Rheumatoid arthritis, unspecified; J44.9 Chronic obstructive pulmonary disease, unspecified; I87.2 Venous insufficiency (chronic) (peripheral); I73.9 Peripheral vascular disease, unspecified | CPT/HCPCS: A9270 ==

== ENCOUNTER 2021-07-10 01:34 | Day surgery (SDC) | payer MEDICARE | END 2021-07-10 23:09 | disposition home or self-care (01) | LOC: WOUND 01:34 | DX: L97.821 Non-pressure chronic ulcer of other part of left lower leg limited to breakdown of skin (principal); M05.79 Rheumatoid arthritis with rheumatoid factor of multiple sites without organ or systems involvement; I87.2 Venous insufficiency (chronic) (peripheral); I73.9 Peripheral vascular disease, unspecified; J44.9 Chronic obstructive pulmonary disease, unspecified | CPT/HCPCS: A9270 ==

== ENCOUNTER 2021-07-17 01:46 | Day surgery (SDC) | payer MEDICARE | END 2021-07-17 23:13 | disposition home or self-care (01) | LOC: WOUND 01:46 | PROC: 2W1RX6Z Compression of Left Lower Leg using Pressure Dressing (ICD-10-PCS; principal; 2021-07-17) | PROC: 0H5LXZZ Destruction of Left Lower Leg Skin, External Approach (ICD-10-PCS; principal; 2021-07-17) | DX: L97.822 Non-pressure chronic ulcer of other part of left lower leg with fat layer exposed (principal); I73.9 Peripheral vascular disease, unspecified; J44.9 Chronic obstructive pulmonary disease, unspecified; Z88.1 Allergy status to other antibiotic agents | CPT/HCPCS: A9270 ==

== ENCOUNTER 2021-07-31 01:15 | Day surgery (SDC) | payer MEDICARE | END 2021-07-31 23:06 | disposition home or self-care (01) | LOC: WOUND 01:15 | DX: L97.822 Non-pressure chronic ulcer of other part of left lower leg with fat layer exposed (principal); M05.79 Rheumatoid arthritis with rheumatoid factor of multiple sites without organ or systems involvement; I87.2 Venous insufficiency (chronic) (peripheral); I73.9 Peripheral vascular disease, unspecified | CPT/HCPCS: A9270 ==

== ENCOUNTER 2021-08-07 00:46 | Day surgery (SDC) | payer MEDICARE | END 2021-08-07 23:05 | disposition home or self-care (01) | LOC: WOUND 00:46 | DX: L97.822 Non-pressure chronic ulcer of other part of left lower leg with fat layer exposed (principal); M05.79 Rheumatoid arthritis with rheumatoid factor of multiple sites without organ or systems involvement; I87.2 Venous insufficiency (chronic) (peripheral); I73.9 Peripheral vascular disease, unspecified; J44.9 Chronic obstructive pulmonary disease, unspecified; Z88.1 Allergy status to other antibiotic agents | CPT/HCPCS: A9270 ==

== ENCOUNTER 2021-08-14 01:58 | Day surgery (SDC) | payer MEDICARE | END 2021-08-14 23:59 | disposition home or self-care (01) | LOC: WOUND 01:58 | DX: L97.821 Non-pressure chronic ulcer of other part of left lower leg limited to breakdown of skin (principal); M05.79 Rheumatoid arthritis with rheumatoid factor of multiple sites without organ or systems involvement; I87.2 Venous insufficiency (chronic) (peripheral); I73.9 Peripheral vascular disease, unspecified; M06.9 Rheumatoid arthritis, unspecified; J44.9 Chronic obstructive pulmonary disease, unspecified; Z88.1 Allergy status to other antibiotic agents | CPT/HCPCS: A9270; G0463 ==

== ENCOUNTER 2021-08-28 01:37 | Day surgery (SDC) | payer MEDICARE | END 2021-08-28 23:23 | disposition home or self-care (01) | LOC: WOUND 01:37 | DX: L97.822 Non-pressure chronic ulcer of other part of left lower leg with fat layer exposed (principal); M05.79 Rheumatoid arthritis with rheumatoid factor of multiple sites without organ or systems involvement; I87.2 Venous insufficiency (chronic) (peripheral); I73.9 Peripheral vascular disease, unspecified; Z88.1 Allergy status to other antibiotic agents | CPT/HCPCS: A9270 ==

== ENCOUNTER 2021-09-04 01:39 | Day surgery (SDC) | payer MEDICARE | END 2021-09-04 23:13 | disposition home or self-care (01) | LOC: WOUND 01:39 | PROC: 2W1RX6Z Compression of Left Lower Leg using Pressure Dressing (ICD-10-PCS; principal; 2021-09-04) | DX: I70.248 Atherosclerosis of native arteries of left leg with ulceration of other part of lower leg (principal); L97.822 Non-pressure chronic ulcer of other part of left lower leg with fat layer exposed; I87.2 Venous insufficiency (chronic) (peripheral); J44.9 Chronic obstructive pulmonary disease, unspecified; Z86.718 Personal history of other venous thrombosis and embolism | CPT/HCPCS: A9270 ==

== ENCOUNTER 2021-09-11 08:00 | Day surgery (SDC) | payer MEDICARE | END 2021-09-11 23:59 | disposition home or self-care (01) | LOC: WOUND 08:00 | DX: L97.821 Non-pressure chronic ulcer of other part of left lower leg limited to breakdown of skin (principal); M05.79 Rheumatoid arthritis with rheumatoid factor of multiple sites without organ or systems involvement; I87.2 Venous insufficiency (chronic) (peripheral); I73.9 Peripheral vascular disease, unspecified ==

== ENCOUNTER 2021-09-19 04:42 | Day surgery (SDC) | payer MEDICARE | END 2021-09-19 23:38 | disposition home or self-care (01) | LOC: WOUND 04:42 | DX: L97.822 Non-pressure chronic ulcer of other part of left lower leg with fat layer exposed (principal); M05.79 Rheumatoid arthritis with rheumatoid factor of multiple sites without organ or systems involvement; I87.2 Venous insufficiency (chronic) (peripheral); I73.9 Peripheral vascular disease, unspecified | CPT/HCPCS: A9270 ==

== ENCOUNTER 2021-09-26 05:25 | Day surgery (SDC) | payer MEDICARE | END 2021-09-26 22:58 | disposition home or self-care (01) | LOC: WOUND 05:25 | DX: L97.822 Non-pressure chronic ulcer of other part of left lower leg with fat layer exposed (principal); M05.79 Rheumatoid arthritis with rheumatoid factor of multiple sites without organ or systems involvement; I87.2 Venous insufficiency (chronic) (peripheral); I73.9 Peripheral vascular disease, unspecified | CPT/HCPCS: A9270 ==

== ENCOUNTER 2021-10-01 05:14 | Day surgery (SDC) | payer MEDICARE | END 2021-10-01 23:43 | disposition home or self-care (01) | LOC: WOUND 05:14 | DX: L97.821 Non-pressure chronic ulcer of other part of left lower leg limited to breakdown of skin (principal); I87.2 Venous insufficiency (chronic) (peripheral); I73.9 Peripheral vascular disease, unspecified ==

== ENCOUNTER 2021-10-08 02:10 | Day surgery (SDC) | payer MEDICARE | END 2021-10-08 23:12 | disposition home or self-care (01) | LOC: WOUND 02:10 | DX: L97.822 Non-pressure chronic ulcer of other part of left lower leg with fat layer exposed (principal); M05.79 Rheumatoid arthritis with rheumatoid factor of multiple sites without organ or systems involvement; I87.2 Venous insufficiency (chronic) (peripheral); I73.9 Peripheral vascular disease, unspecified; M06.9 Rheumatoid arthritis, unspecified; J44.9 Chronic obstructive pulmonary disease, unspecified ==

== ENCOUNTER 2021-10-17 04:35 | Day surgery (SDC) | payer MEDICARE | END 2021-10-17 23:05 | disposition home or self-care (01) | LOC: WOUND 04:35 | DX: L97.821 Non-pressure chronic ulcer of other part of left lower leg limited to breakdown of skin (principal); M05.79 Rheumatoid arthritis with rheumatoid factor of multiple sites without organ or systems involvement; I87.2 Venous insufficiency (chronic) (peripheral); I73.9 Peripheral vascular disease, unspecified ==

== ENCOUNTER 2021-10-22 02:53 | Day surgery (SDC) | payer MEDICARE | END 2021-10-22 23:03 | disposition home or self-care (01) | LOC: WOUND 02:53 | PROC: XHRPXF7 Replacement of Skin with Bioengineered Allogeneic Construct, External Approach, New Technology Group 7 (ICD-10-PCS; principal; 2021-10-22) | DX: I70.248 Atherosclerosis of native arteries of left leg with ulceration of other part of lower leg (principal); L97.822 Non-pressure chronic ulcer of other part of left lower leg with fat layer exposed; I87.2 Venous insufficiency (chronic) (peripheral); M05.79 Rheumatoid arthritis with rheumatoid factor of multiple sites without organ or systems involvement; J44.9 Chronic obstructive pulmonary disease, unspecified; Z86.718 Personal history of other venous thrombosis and embolism | CPT/HCPCS: Q4133 ==

== ENCOUNTER 2021-10-29 08:00 | Day surgery (SDC) | payer MEDICARE | END 2021-10-29 23:59 | disposition home or self-care (01) | LOC: WOUND 08:00 | PROC: XHRPXF7 Replacement of Skin with Bioengineered Allogeneic Construct, External Approach, New Technology Group 7 (ICD-10-PCS; principal; 2021-10-29) | DX: I70.248 Atherosclerosis of native arteries of left leg with ulceration of other part of lower leg (principal); L97.822 Non-pressure chronic ulcer of other part of left lower leg with fat layer exposed; M05.79 Rheumatoid arthritis with rheumatoid factor of multiple sites without organ or systems involvement; I87.2 Venous insufficiency (chronic) (peripheral) | CPT/HCPCS: A9270; Q4133 ==

== ENCOUNTER 2021-11-04 05:01 | Day surgery (SDC) | payer MEDICARE | END 2021-11-04 22:41 | disposition home or self-care (01) | LOC: WOUND 05:01 | DX: L97.821 Non-pressure chronic ulcer of other part of left lower leg limited to breakdown of skin (principal); M05.79 Rheumatoid arthritis with rheumatoid factor of multiple sites without organ or systems involvement; I87.2 Venous insufficiency (chronic) (peripheral); I73.9 Peripheral vascular disease, unspecified ==

== ENCOUNTER 2021-11-12 05:16 | Day surgery (SDC) | payer MEDICARE | END 2021-11-12 23:43 | disposition home or self-care (01) | LOC: WOUND 05:16 | DX: L97.821 Non-pressure chronic ulcer of other part of left lower leg limited to breakdown of skin (principal); M05.79 Rheumatoid arthritis with rheumatoid factor of multiple sites without organ or systems involvement; I87.2 Venous insufficiency (chronic) (peripheral); I73.9 Peripheral vascular disease, unspecified | CPT/HCPCS: A9270 ==

== ENCOUNTER 2021-11-19 01:48 | Day surgery (SDC) | payer MEDICARE | END 2021-11-19 22:39 | disposition home or self-care (01) | LOC: WOUND 01:48 | DX: I73.9 Peripheral vascular disease, unspecified (principal); M05.79 Rheumatoid arthritis with rheumatoid factor of multiple sites without organ or systems involvement; I87.2 Venous insufficiency (chronic) (peripheral); J44.9 Chronic obstructive pulmonary disease, unspecified; Z87.2 Personal history of diseases of the skin and subcutaneous tissue | CPT/HCPCS: G0463 ==

== ENCOUNTER → 2022-03-19 | Outpatient (CLI) | payer MEDICARE ==
[~2022-03-19] MED LIST changes: +CARV3.125; +FURO80; +IBUP400 PO; +PRED5
[2022-03-21 16:09] LABS: HEPATITIS C QUANTITATION HCV Not Detected IU/mL (.)
== END | disposition home or self-care (01) ==
LOC: LAB SHORT 14:22 → LAB 14:22
PROVIDERS: Internal Medicine Rheumatology
DX: B18.2 Chronic viral hepatitis C (principal)
CPT/HCPCS: 87522

== ENCOUNTER 2022-10-06 13:01 | Emergency (ER) | payer MEDICARE ==
[~2022-10-06] VITALS: Ht 167.6 cm; Wt 99.8 kg
== END 2022-10-06 15:28 | disposition home or self-care (01) ==
LOC: ER 13:01
DX: S80.12XA Contusion of left lower leg, initial encounter (principal); W01.0XXA Fall on same level from slipping, tripping and stumbling without subsequent striking against object, initial encounter; F17.220 Nicotine dependence, chewing tobacco, uncomplicated; Z79.52 Long term (current) use of systemic steroids; Z88.8 Allergy status to other drugs, medicaments and biological substances; Z91.09 Other allergy status, other than to drugs and biological substances
CPT/HCPCS: 73590

== ENCOUNTER → 2022-10-16 | Outpatient (CLI) | payer MEDICARE | END | disposition home or self-care (01) | LOC: LAB 15:15 → LAB SHORT 15:15 | DX: S81.802A Unspecified open wound, left lower leg, initial encounter (principal) | CPT/HCPCS: 87070; 87075; 87077; 87186; 87205 ==

== ENCOUNTER → 2022-10-29 | Outpatient (CLI) | payer MEDICARE ==
[2022-10-29 17:25] LABS: BASOPHILS ABSOLUTE AUTO 0.02 K/mm3 (0.00-0.23); BASOPHILS PERCENT AUTO 0 % (0-2); EOSINOPHILS ABSOLUTE AUTO 0.02 K/mm3 (0.00-0.68); EOSINOPHILS PERCENT AUTO 0 % (0-6); Hematocrit 37.7 % (37.0-53.0); Hemoglobin 12.1 g/dL (13.5-17.5); IMMATURE GRAN ABSOLUTE AUTO 0.11 K/mm3 (0.00-0.10); IMMATURE GRAN PERCENT AUTO 1 % (0-1); LYMPHOCYTES ABSOLUTE AUTO 0.48 K/mm3 (0.84-5.20); LYMPHOCYTES PERCENT AUTO 4 % (21-46); MONOCYTES ABSOLUTE AUTO 0.27 K/mm3 (0.16-1.47); MONOCYTES PERCENT AUTO 2 % (4-13); Mean Corpuscular HGB 30.8 pg (26.0-34.0); Mean Corpuscular HGB Conc 32.1 g/dL (31.5-36.5); Mean Corpuscular Volume 96 fL (80-100); NEUTROPHILS ABSOLUTE AUTO 11.05 K/mm3 (1.96-9.15); NEUTROPHILS PERCENT AUTO 92 % (41-73); Platelet Count 304 K/mm3 (150-400); RDW Coefficient Variation 15.1 % (11.7-14.2); RDW Standard Deviation 53.4 fL (35.1-46.3); Red Blood Cell Count 3.93 M/mm3 (4.30-5.90); White Blood Cell Count 11.95 K/mm3 (4.00-11.30)
[2022-10-29 17:52] LABS: Albumin, Blood 3.2 g/dL (3.4-5.0); Albumin/Globulin Ratio 0.9 (0.8-1.8); Bilirubin, Total 0.3 mg/dL (0.1-1.0); Creatinine, Blood 1.1 mg/dL (0.60-1.20); Globulin, Blood 3.6 g/dL (2.2-4.0); Potassium, Blood 4.2 mmol/L (3.5-5.5); Total Protein, Blood 6.8 g/dL (6.4-8.2)
== END | disposition home or self-care (01) ==
LOC: LAB SHORT 15:53 → LAB 15:53
PROVIDERS: Internal Medicine Rheumatology
DX: M06.9 Rheumatoid arthritis, unspecified (principal)
CPT/HCPCS: 80053; 85025; 85651

== ENCOUNTER → 2022-12-10 | Outpatient (CLI) | payer MEDICARE ==
[2022-12-10 18:59] LABS: BASOPHILS ABSOLUTE AUTO 0.05 K/mm3 (0.00-0.23); BASOPHILS PERCENT AUTO 1 % (0-2); EOSINOPHILS ABSOLUTE AUTO 0.27 K/mm3 (0.00-0.68); EOSINOPHILS PERCENT AUTO 3 % (0-6); Hematocrit 41.4 % (37.0-53.0); Hemoglobin 13.1 g/dL (13.5-17.5); IMMATURE GRAN ABSOLUTE AUTO 0.32 K/mm3 (0.00-0.10); IMMATURE GRAN PERCENT AUTO 3 % (0-1); LYMPHOCYTES ABSOLUTE AUTO 0.61 K/mm3 (0.84-5.20); LYMPHOCYTES PERCENT AUTO 6 % (21-46); MONOCYTES ABSOLUTE AUTO 0.47 K/mm3 (0.16-1.47); MONOCYTES PERCENT AUTO 4 % (4-13); Mean Corpuscular HGB 30.5 pg (26.0-34.0); Mean Corpuscular HGB Conc 31.6 g/dL (31.5-36.5); Mean Corpuscular Volume 96 fL (80-100); Mean Platelet Volume 10.2 fL (9.1-12.4); NEUTROPHILS ABSOLUTE AUTO 9.18 K/mm3 (1.96-9.15); NEUTROPHILS PERCENT AUTO 84 % (41-73); Platelet Count 320 K/mm3 (150-400); RDW Coefficient Variation 15.7 % (11.7-14.2); RDW Standard Deviation 53.9 fL (35.1-46.3)
[2022-12-10 22:07] LABS: Albumin/Globulin Ratio 0.8 (0.8-1.8); Bilirubin, Total 0.2 mg/dL (0.1-1.0); Bun/Creatinine Ratio 20.2 (12.0-20.0); Calcium, Blood 9.2 mg/dL (8.5-10.1); Creatinine, Blood 1.24 mg/dL (0.60-1.20); Globulin, Blood 3.9 g/dL (2.2-4.0); Potassium, Blood 4.5 mmol/L (3.5-5.5); Total Protein, Blood 6.9 g/dL (6.4-8.2)
== END | disposition home or self-care (01) ==
LOC: LAB 15:18 → LAB SHORT 15:18
PROVIDERS: Internal Medicine Rheumatology
DX: M06.9 Rheumatoid arthritis, unspecified (principal)
CPT/HCPCS: 80053; 85025; 85651

== ENCOUNTER 2022-12-19 14:08 | Emergency (ER) | payer OTHER, MEDICARE ==
[~2022-12-19] VITALS: Ht 167.6 cm; Wt 93.0 kg
[~2022-12-19 14:08] MED LIST changes: -CARV3.125; +CARV3.125 PO
[2022-12-19] MEDS ORDERED: Prednisone10 MG PO (14:26)
[2022-12-19] MEDS ORDERED: CARV25 PO (14:27)
[2022-12-19] MEDS ORDERED: FURO20 PO (14:27)
== END 2022-12-19 16:43 | disposition home or self-care (01) ==
LOC: ER 14:08
DX: S81.011A Laceration without foreign body, right knee, initial encounter (principal); S50.811A Abrasion of right forearm, initial encounter; S90.31XA Contusion of right foot, initial encounter; W01.0XXA Fall on same level from slipping, tripping and stumbling without subsequent striking against object, initial encounter; F17.220 Nicotine dependence, chewing tobacco, uncomplicated; Z88.2 Allergy status to sulfonamides; Z88.1 Allergy status to other antibiotic agents; Z91.048 Other nonmedicinal substance allergy status; Z79.899 Other long term (current) drug therapy
CPT/HCPCS: 73562-RT; 73630; 90714; J1885

== ENCOUNTER 2023-02-07 09:23 | Emergency (ER) | payer OTHER ==
[~2023-02-07] VITALS: Ht 167.6 cm; Wt 95.2 kg
[~2023-02-07 09:23] MED LIST changes: +FURO20 PO; +Prednisone10 MG PO
[2023-02-07] MEDS ORDERED: OMEP20ER PO (09:42)
[2023-02-07] MEDS ORDERED: GABA100 PO (09:43)
[2023-02-07] MEDS ORDERED: LEFL20 PO (09:43)
== END 2023-02-07 13:07 | disposition home or self-care (01) ==
LOC: ER 09:23
DX: S81.812A Laceration without foreign body, left lower leg, initial encounter (principal); F17.220 Nicotine dependence, chewing tobacco, uncomplicated; W18.09XA Striking against other object with subsequent fall, initial encounter; Z96.653 Presence of artificial knee joint, bilateral; Z96.641 Presence of right artificial hip joint
CPT/HCPCS: 12004; 73030; 73590; 99283-25; A9270

== ENCOUNTER → 2023-02-15 | Outpatient (CLI) | payer OTHER ==
[~2023-02-15] MED LIST changes: +GABA100 PO; +LEFL20 PO; +OMEP20ER PO
== END | disposition home or self-care (01) ==
LOC: LAB 17:20 → LAB SHORT 17:20
DX: Z51.89 Encounter for other specified aftercare (principal)
CPT/HCPCS: 87070; 87075; 87077; 87186; 87205

== ENCOUNTER 2023-02-26 00:40 | Day surgery (SDC) | payer OTHER | END 2023-02-26 22:59 | disposition home or self-care (01) | LOC: WOUND 00:40 | DX: T81.33XD Disruption of traumatic injury wound repair, subsequent encounter (principal); S81.001D Unspecified open wound, right knee, subsequent encounter; S81.802D Unspecified open wound, left lower leg, subsequent encounter; W19.XXXD Unspecified fall, subsequent encounter; L03.115 Cellulitis of right lower limb; F17.290 Nicotine dependence, other tobacco product, uncomplicated; J44.9 Chronic obstructive pulmonary disease, unspecified; Z88.1 Allergy status to other antibiotic agents; I10 Essential (primary) hypertension | CPT/HCPCS: A9270; G0463 ==

== ENCOUNTER 2023-03-12 02:04 | Day surgery (SDC) | payer OTHER | END 2023-03-12 23:00 | disposition home or self-care (01) | LOC: WOUND 02:04 | DX: T81.30XD Disruption of wound, unspecified, subsequent encounter (principal); Y83.8 Other surgical procedures as the cause of abnormal reaction of the patient, or of later complication, without mention of misadventure at the time of the procedure; S81.001D Unspecified open wound, right knee, subsequent encounter; S81.812D Laceration without foreign body, left lower leg, subsequent encounter; X58.XXXD Exposure to other specified factors, subsequent encounter; L97.819 Non-pressure chronic ulcer of other part of right lower leg with unspecified severity; L97.929 Non-pressure chronic ulcer of unspecified part of left lower leg with unspecified severity; L03.115 Cellulitis of right lower limb | CPT/HCPCS: G0463 ==

== ENCOUNTER → 2023-03-17 | Outpatient (CLI) | payer OTHER ==
[2023-03-17 17:51] LABS: BASOPHILS ABSOLUTE AUTO 0.03 K/mm3 (0.00-0.23); BASOPHILS PERCENT AUTO 0 % (0-2); EOSINOPHILS ABSOLUTE AUTO 0.07 K/mm3 (0.00-0.68); EOSINOPHILS PERCENT AUTO 1 % (0-6); Hematocrit 39.1 % (37.0-53.0); Hemoglobin 12.3 g/dL (13.5-17.5); IMMATURE GRAN ABSOLUTE AUTO 0.06 K/mm3 (0.00-0.10); IMMATURE GRAN PERCENT AUTO 1 % (0-1); LYMPHOCYTES ABSOLUTE AUTO 0.36 K/mm3 (0.84-5.20); LYMPHOCYTES PERCENT AUTO 3 % (21-46); MONOCYTES ABSOLUTE AUTO 0.27 K/mm3 (0.16-1.47); MONOCYTES PERCENT AUTO 3 % (4-13); Mean Corpuscular HGB 31.4 pg (26.0-34.0); Mean Corpuscular HGB Conc 31.5 g/dL (31.5-36.5); Mean Corpuscular Volume 100 fL (80-100); Mean Platelet Volume 11.3 fL (9.1-12.4); NEUTROPHILS ABSOLUTE AUTO 9.65 K/mm3 (1.96-9.15); NEUTROPHILS PERCENT AUTO 92 % (41-73); Platelet Count 215 K/mm3 (150-400); RDW Coefficient Variation 16.7 % (11.7-14.2); RDW Standard Deviation 60.1 fL (35.1-46.3); Red Blood Cell Count 3.92 M/mm3 (4.30-5.90); White Blood Cell Count 10.44 K/mm3 (4.00-11.30)
[2023-03-17 19:33] LABS: Albumin, Blood 3.5 g/dL (3.4-5.0); Albumin/Globulin Ratio 1.1 (0.8-1.8); Bilirubin, Total 0.3 mg/dL (0.1-1.0); Bun/Creatinine Ratio 23.5 (12.0-20.0); Calcium, Blood 8.6 mg/dL (8.5-10.1); Creatinine, Blood 1.19 mg/dL (0.60-1.20); Globulin, Blood 3.2 g/dL (2.2-4.0); Potassium, Blood 5.2 mmol/L (3.5-5.5); Total Protein, Blood 6.7 g/dL (6.4-8.2)
== END | disposition home or self-care (01) ==
LOC: LAB SHORT 17:28 → LAB 17:28
PROVIDERS: Internal Medicine Rheumatology
DX: M06.9 Rheumatoid arthritis, unspecified (principal)
CPT/HCPCS: 80053; 85025; 85651

== ENCOUNTER 2023-03-26 02:50 | Day surgery (SDC) | payer OTHER | END 2023-03-28 22:42 | disposition home or self-care (01) | LOC: WOUND 02:50 | DX: S81.001D Unspecified open wound, right knee, subsequent encounter (principal); S81.812D Laceration without foreign body, left lower leg, subsequent encounter; X58.XXXD Exposure to other specified factors, subsequent encounter; T81.30XD Disruption of wound, unspecified, subsequent encounter; Y83.8 Other surgical procedures as the cause of abnormal reaction of the patient, or of later complication, without mention of misadventure at the time of the procedure; L97.819 Non-pressure chronic ulcer of other part of right lower leg with unspecified severity; L97.929 Non-pressure chronic ulcer of unspecified part of left lower leg with unspecified severity; L03.115 Cellulitis of right lower limb | CPT/HCPCS: G0463 ==

== ENCOUNTER 2023-04-09 03:55 | Day surgery (SDC) | payer OTHER | END 2023-04-12 23:16 | disposition home or self-care (01) | LOC: WOUND 03:55 | DX: T81.33XD Disruption of traumatic injury wound repair, subsequent encounter (principal); L03.115 Cellulitis of right lower limb; S81.001D Unspecified open wound, right knee, subsequent encounter; S81.812D Laceration without foreign body, left lower leg, subsequent encounter; L97.819 Non-pressure chronic ulcer of other part of right lower leg with unspecified severity; L97.929 Non-pressure chronic ulcer of unspecified part of left lower leg with unspecified severity; Y83.8 Other surgical procedures as the cause of abnormal reaction of the patient, or of later complication, without mention of misadventure at the time of the procedure; X58.XXXD Exposure to other specified factors, subsequent encounter | CPT/HCPCS: G0463 ==

== ENCOUNTER 2023-05-17 00:49 | Day surgery (SDC) | payer OTHER | END 2023-05-17 22:58 | disposition home or self-care (01) | LOC: WOUND 00:49 | DX: T81.31XD Disruption of external operation (surgical) wound, not elsewhere classified, subsequent encounter (principal); L03.115 Cellulitis of right lower limb; S81.001D Unspecified open wound, right knee, subsequent encounter; S81.812D Laceration without foreign body, left lower leg, subsequent encounter; L97.819 Non-pressure chronic ulcer of other part of right lower leg with unspecified severity; L97.929 Non-pressure chronic ulcer of unspecified part of left lower leg with unspecified severity; Y83.8 Other surgical procedures as the cause of abnormal reaction of the patient, or of later complication, without mention of misadventure at the time of the procedure | CPT/HCPCS: G0463 ==

== ENCOUNTER 2023-06-04 03:03 | Day surgery (SDC) | payer OTHER | END 2023-06-04 22:49 | disposition home or self-care (01) | LOC: WOUND 03:03 | DX: T81.30XD Disruption of wound, unspecified, subsequent encounter (principal); M25.561 Pain in right knee; L03.115 Cellulitis of right lower limb; S81.001D Unspecified open wound, right knee, subsequent encounter; Z48.02 Encounter for removal of sutures; S81.812D Laceration without foreign body, left lower leg, subsequent encounter; L97.819 Non-pressure chronic ulcer of other part of right lower leg with unspecified severity; L97.929 Non-pressure chronic ulcer of unspecified part of left lower leg with unspecified severity | CPT/HCPCS: G0463 ==

== ENCOUNTER 2023-06-18 00:43 | Day surgery (SDC) | payer OTHER | END 2023-06-18 22:54 | disposition home or self-care (01) | LOC: WOUND 00:43 | DX: T81.30XD Disruption of wound, unspecified, subsequent encounter (principal); M25.561 Pain in right knee; L03.115 Cellulitis of right lower limb; S81.001D Unspecified open wound, right knee, subsequent encounter; Z48.02 Encounter for removal of sutures; S81.812D Laceration without foreign body, left lower leg, subsequent encounter; L97.819 Non-pressure chronic ulcer of other part of right lower leg with unspecified severity; L97.929 Non-pressure chronic ulcer of unspecified part of left lower leg with unspecified severity | CPT/HCPCS: A9270; G0463 ==

== ENCOUNTER → 2023-06-23 | Outpatient (CLI) | payer OTHER ==
[2023-06-23 15:58] LABS: BASOPHILS ABSOLUTE AUTO 0.06 K/mm3 (0.00-0.23); BASOPHILS PERCENT AUTO 1 % (0-2); EOSINOPHILS ABSOLUTE AUTO 0.27 K/mm3 (0.00-0.68); EOSINOPHILS PERCENT AUTO 4 % (0-6); Hematocrit 35.9 % (37.0-53.0); Hemoglobin 11.5 g/dL (13.5-17.5); IMMATURE GRAN ABSOLUTE AUTO 0.04 K/mm3 (0.00-0.10); IMMATURE GRAN PERCENT AUTO 1 % (0-1); LYMPHOCYTES ABSOLUTE AUTO 0.81 K/mm3 (0.84-5.20); LYMPHOCYTES PERCENT AUTO 11 % (21-46); MONOCYTES ABSOLUTE AUTO 0.28 K/mm3 (0.16-1.47); MONOCYTES PERCENT AUTO 4 % (4-13); Mean Corpuscular Volume 103 fL (80-100); Mean Platelet Volume 10.8 fL (9.1-12.4); NEUTROPHILS ABSOLUTE AUTO 6.11 K/mm3 (1.96-9.15); NEUTROPHILS PERCENT AUTO 81 % (41-73); Platelet Count 236 K/mm3 (150-400); RDW Coefficient Variation 15.2 % (11.7-14.2); RDW Standard Deviation 56.4 fL (35.1-46.3); Red Blood Cell Count 3.48 M/mm3 (4.30-5.90); White Blood Cell Count 7.57 K/mm3 (4.00-11.30)
[2023-06-23 16:29] LABS: Albumin, Blood 3.2 g/dL (3.4-5.0); Albumin/Globulin Ratio 0.9 (0.8-1.8); Bilirubin, Total 0.4 mg/dL (0.1-1.0); Bun/Creatinine Ratio 21.7 (12.0-20.0); Calcium, Blood 8.9 mg/dL (8.5-10.1); Creatinine, Blood 1.2 mg/dL (0.60-1.20); Globulin, Blood 3.4 g/dL (2.2-4.0); Potassium, Blood 4.2 mmol/L (3.5-5.5); Total Protein, Blood 6.6 g/dL (6.4-8.2)
== END | disposition home or self-care (01) ==
LOC: LAB SHORT 10:45 → LAB 10:45
PROVIDERS: Internal Medicine Rheumatology
DX: M06.9 Rheumatoid arthritis, unspecified (principal)
CPT/HCPCS: 80053; 85025; 85651

== ENCOUNTER 2023-07-09 00:56 | Day surgery (SDC) | payer OTHER | END 2023-07-09 22:57 | disposition home or self-care (01) | LOC: WOUND 00:56 | DX: T81.30XA Disruption of wound, unspecified, initial encounter (principal); J44.9 Chronic obstructive pulmonary disease, unspecified; I10 Essential (primary) hypertension; M06.9 Rheumatoid arthritis, unspecified; M19.90 Unspecified osteoarthritis, unspecified site; G62.9 Polyneuropathy, unspecified; L03.115 Cellulitis of right lower limb; Y83.8 Other surgical procedures as the cause of abnormal reaction of the patient, or of later complication, without mention of misadventure at the time of the procedure | CPT/HCPCS: A9270; G0463 ==

== ENCOUNTER 2023-07-23 00:47 | Day surgery (SDC) | payer OTHER | END 2023-07-23 22:46 | disposition home or self-care (01) | LOC: WOUND 00:47 | DX: T81.30XA Disruption of wound, unspecified, initial encounter (principal); L03.115 Cellulitis of right lower limb; Y84.8 Other medical procedures as the cause of abnormal reaction of the patient, or of later complication, without mention of misadventure at the time of the procedure | CPT/HCPCS: G0463 ==

== ENCOUNTER 2023-08-12 08:00 | Day surgery (SDC) | payer OTHER | END 2023-08-12 23:59 | disposition home or self-care (01) | LOC: WOUND 08:00 | DX: T81.30XD Disruption of wound, unspecified, subsequent encounter (principal); S81.001D Unspecified open wound, right knee, subsequent encounter; L03.115 Cellulitis of right lower limb; Z48.02 Encounter for removal of sutures; S81.812D Laceration without foreign body, left lower leg, subsequent encounter | CPT/HCPCS: G0463 ==

== ENCOUNTER 2023-08-26 03:32 | Day surgery (SDC) | payer OTHER | END 2023-08-26 22:44 | disposition home or self-care (01) | LOC: WOUND 03:32 | DX: T81.30XD Disruption of wound, unspecified, subsequent encounter (principal); M06.9 Rheumatoid arthritis, unspecified; J44.9 Chronic obstructive pulmonary disease, unspecified; L03.115 Cellulitis of right lower limb; S81.001D Unspecified open wound, right knee, subsequent encounter; Y83.8 Other surgical procedures as the cause of abnormal reaction of the patient, or of later complication, without mention of misadventure at the time of the procedure | CPT/HCPCS: G0463 ==

== ENCOUNTER 2023-09-08 04:45 | Day surgery (SDC) | payer OTHER | END 2023-09-08 23:18 | disposition home or self-care (01) | LOC: WOUND 04:45 | DX: T81.30XD Disruption of wound, unspecified, subsequent encounter (principal); S81.001D Unspecified open wound, right knee, subsequent encounter; S81.812D Laceration without foreign body, left lower leg, subsequent encounter; X58.XXXD Exposure to other specified factors, subsequent encounter; L03.115 Cellulitis of right lower limb; J44.9 Chronic obstructive pulmonary disease, unspecified | CPT/HCPCS: G0463 ==

== ENCOUNTER 2023-09-22 06:11 | Day surgery (SDC) | payer OTHER | END 2023-09-22 23:01 | disposition home or self-care (01) | LOC: WOUND 06:11 | DX: T81.30XD Disruption of wound, unspecified, subsequent encounter (principal); M06.9 Rheumatoid arthritis, unspecified; J44.9 Chronic obstructive pulmonary disease, unspecified; L03.115 Cellulitis of right lower limb; Z48.02 Encounter for removal of sutures; S81.001D Unspecified open wound, right knee, subsequent encounter; X58.XXXD Exposure to other specified factors, subsequent encounter; Y83.8 Other surgical procedures as the cause of abnormal reaction of the patient, or of later complication, without mention of misadventure at the time of the procedure | CPT/HCPCS: G0463 ==

== ENCOUNTER → 2023-09-23 | Outpatient (CLI) | payer OTHER ==
[2023-09-23 16:14] LABS: Albumin/Globulin Ratio 0.8 (0.8-1.8); Bilirubin, Total 0.4 mg/dL (0.1-1.0); Bun/Creatinine Ratio 17.7 (12.0-20.0); Calcium, Blood 8.7 mg/dL (8.5-10.1); Creatinine, Blood 1.41 mg/dL (0.60-1.20); Globulin, Blood 3.7 g/dL (2.2-4.0); Potassium, Blood 4.3 mmol/L (3.5-5.5); Total Protein, Blood 6.7 g/dL (6.4-8.2)
[2023-09-23 16:19] LABS: BASOPHILS ABSOLUTE AUTO 0.04 K/mm3 (0.00-0.23); BASOPHILS PERCENT AUTO 1 % (0-2); EOSINOPHILS ABSOLUTE AUTO 0.19 K/mm3 (0.00-0.68); EOSINOPHILS PERCENT AUTO 2 % (0-6); Hematocrit 32.7 % (37.0-53.0); Hemoglobin 10.3 g/dL (13.5-17.5); IMMATURE GRAN ABSOLUTE AUTO 0.05 K/mm3 (0.00-0.10); IMMATURE GRAN PERCENT AUTO 1 % (0-1); LYMPHOCYTES ABSOLUTE AUTO 0.94 K/mm3 (0.84-5.20); LYMPHOCYTES PERCENT AUTO 11 % (21-46); MONOCYTES ABSOLUTE AUTO 0.28 K/mm3 (0.16-1.47); MONOCYTES PERCENT AUTO 3 % (4-13); Mean Corpuscular HGB 33.6 pg (26.0-34.0); Mean Corpuscular HGB Conc 31.5 g/dL (31.5-36.5); Mean Corpuscular Volume 107 fL (80-100); Mean Platelet Volume 11.6 fL (9.1-12.4); NEUTROPHILS ABSOLUTE AUTO 7.19 K/mm3 (1.96-9.15); NEUTROPHILS PERCENT AUTO 83 % (41-73); Platelet Count 193 K/mm3 (150-400); RDW Coefficient Variation 16.3 % (11.7-14.2); RDW Standard Deviation 63.4 fL (35.1-46.3); Red Blood Cell Count 3.07 M/mm3 (4.30-5.90); White Blood Cell Count 8.69 K/mm3 (4.00-11.30)
== END | disposition home or self-care (01) ==
LOC: LAB SHORT 15:09 → LAB 15:09
PROVIDERS: Internal Medicine Rheumatology
DX: M06.9 Rheumatoid arthritis, unspecified (principal)
CPT/HCPCS: 80053; 85025; 85651

== ENCOUNTER 2023-10-06 01:54 | Day surgery (SDC) | payer OTHER | END 2023-10-06 22:37 | disposition home or self-care (01) | LOC: WOUND 01:54 | DX: T81.30XD Disruption of wound, unspecified, subsequent encounter (principal); S81.001D Unspecified open wound, right knee, subsequent encounter; L03.115 Cellulitis of right lower limb; Z48.02 Encounter for removal of sutures; S81.812D Laceration without foreign body, left lower leg, subsequent encounter | CPT/HCPCS: G0463 ==

== ENCOUNTER 2023-10-20 03:22 | Day surgery (SDC) | payer OTHER | END 2023-10-20 23:03 | disposition home or self-care (01) | LOC: WOUND 03:22 | DX: T81.30XD Disruption of wound, unspecified, subsequent encounter (principal); S81.001D Unspecified open wound, right knee, subsequent encounter; L03.115 Cellulitis of right lower limb; S81.812D Laceration without foreign body, left lower leg, subsequent encounter | CPT/HCPCS: G0463 ==

== ENCOUNTER 2023-11-10 03:26 | Day surgery (SDC) | payer OTHER | END 2023-11-10 22:48 | disposition home or self-care (01) | LOC: WOUND 03:26 | DX: T81.30XD Disruption of wound, unspecified, subsequent encounter (principal); J44.9 Chronic obstructive pulmonary disease, unspecified; M06.9 Rheumatoid arthritis, unspecified; L03.115 Cellulitis of right lower limb; S81.812D Laceration without foreign body, left lower leg, subsequent encounter; X58.XXXD Exposure to other specified factors, subsequent encounter; Y83.8 Other surgical procedures as the cause of abnormal reaction of the patient, or of later complication, without mention of misadventure at the time of the procedure | CPT/HCPCS: G0463 ==

== ENCOUNTER 2023-11-24 03:15 | Day surgery (SDC) | payer OTHER | END 2023-11-24 23:25 | disposition home or self-care (01) | LOC: WOUND 03:15 | DX: T81.30XD Disruption of wound, unspecified, subsequent encounter (principal); M06.9 Rheumatoid arthritis, unspecified; J44.9 Chronic obstructive pulmonary disease, unspecified; S81.001D Unspecified open wound, right knee, subsequent encounter; L03.115 Cellulitis of right lower limb; S81.812D Laceration without foreign body, left lower leg, subsequent encounter; Z48.02 Encounter for removal of sutures; Y83.8 Other surgical procedures as the cause of abnormal reaction of the patient, or of later complication, without mention of misadventure at the time of the procedure | CPT/HCPCS: G0463 ==

== ENCOUNTER 2023-12-08 03:01 | Day surgery (SDC) | payer OTHER | END 2023-12-08 23:21 | disposition home or self-care (01) | LOC: WOUND 03:01 | DX: T81.30XD Disruption of wound, unspecified, subsequent encounter (principal); S81.001D Unspecified open wound, right knee, subsequent encounter; L03.115 Cellulitis of right lower limb; Z48.02 Encounter for removal of sutures; S81.812D Laceration without foreign body, left lower leg, subsequent encounter | CPT/HCPCS: G0463 ==

== ENCOUNTER 2023-12-22 00:19 | Day surgery (SDC) | payer OTHER | END 2023-12-22 22:43 | disposition home or self-care (01) | LOC: WOUND 00:19 | DX: T81.30XD Disruption of wound, unspecified, subsequent encounter (principal); S81.001D Unspecified open wound, right knee, subsequent encounter; L03.115 Cellulitis of right lower limb; S81.812D Laceration without foreign body, left lower leg, subsequent encounter; M06.9 Rheumatoid arthritis, unspecified; J44.9 Chronic obstructive pulmonary disease, unspecified; S90.415D Abrasion, left lesser toe(s), subsequent encounter | CPT/HCPCS: A6213; G0463 ==

== ENCOUNTER 2024-01-05 02:49 | Day surgery (SDC) | payer OTHER | END 2024-01-05 22:56 | disposition home or self-care (01) | LOC: WOUND 02:49 | DX: T81.31XD Disruption of external operation (surgical) wound, not elsewhere classified, subsequent encounter (principal); M06.9 Rheumatoid arthritis, unspecified; J44.9 Chronic obstructive pulmonary disease, unspecified; L03.115 Cellulitis of right lower limb; S90.415D Abrasion, left lesser toe(s), subsequent encounter; X58.XXXD Exposure to other specified factors, subsequent encounter; Y83.8 Other surgical procedures as the cause of abnormal reaction of the patient, or of later complication, without mention of misadventure at the time of the procedure | CPT/HCPCS: A6213; G0463 ==

== ENCOUNTER 2024-03-08 03:10 | Day surgery (SDC) | payer OTHER | END 2024-03-08 22:45 | disposition home or self-care (01) | LOC: WOUND 03:10 | DX: T81.30XD Disruption of wound, unspecified, subsequent encounter (principal); S91.115D Laceration without foreign body of left lesser toe(s) without damage to nail, subsequent encounter; S81.001D Unspecified open wound, right knee, subsequent encounter; S81.812D Laceration without foreign body, left lower leg, subsequent encounter; S80.211D Abrasion, right knee, subsequent encounter; X58.XXXD Exposure to other specified factors, subsequent encounter; J44.9 Chronic obstructive pulmonary disease, unspecified; M06.9 Rheumatoid arthritis, unspecified; L03.115 Cellulitis of right lower limb; Y83.8 Other surgical procedures as the cause of abnormal reaction of the patient, or of later complication, without mention of misadventure at the time of the procedure | CPT/HCPCS: A6213; G0463 ==

== ENCOUNTER 2024-04-19 03:04 | Day surgery (SDC) | payer OTHER | END 2024-04-19 22:59 | disposition home or self-care (01) | LOC: WOUND 03:04 | DX: T81.31XD Disruption of external operation (surgical) wound, not elsewhere classified, subsequent encounter (principal); S90.415D Abrasion, left lesser toe(s), subsequent encounter; S80.211D Abrasion, right knee, subsequent encounter; L03.115 Cellulitis of right lower limb; M06.9 Rheumatoid arthritis, unspecified; J44.9 Chronic obstructive pulmonary disease, unspecified; X58.XXXD Exposure to other specified factors, subsequent encounter; Y83.8 Other surgical procedures as the cause of abnormal reaction of the patient, or of later complication, without mention of misadventure at the time of the procedure | CPT/HCPCS: A6213; G0463 ==

== ENCOUNTER 2024-05-10 03:24 | Day surgery (SDC) | payer OTHER ==
[~2024-05-10 03:24] MED LIST changes: +Aspir 8181 MG; +Aspir 8181 MG PO; +CELE200 PO; +LISI20 PO; +METHOTREXATE PO; +NIAC500 PO; +ZINC15 PO
== END 2024-05-10 23:10 | disposition home or self-care (01) ==
LOC: WOUND 03:24
DX: T81.30XA Disruption of wound, unspecified, initial encounter (principal); S91.115A Laceration without foreign body of left lesser toe(s) without damage to nail, initial encounter; L89.893 Pressure ulcer of other site, stage 3; S81.001D Unspecified open wound, right knee, subsequent encounter; S81.812D Laceration without foreign body, left lower leg, subsequent encounter; L03.115 Cellulitis of right lower limb; W19.XXXA Unspecified fall, initial encounter; J44.9 Chronic obstructive pulmonary disease, unspecified; M06.9 Rheumatoid arthritis, unspecified
CPT/HCPCS: A6213; G0463

== ENCOUNTER 2024-05-12 11:02 | Emergency (ER) | payer OTHER ==
[~2024-05-12] VITALS: Ht 167.6 cm; Wt 90.7 kg
[2024-05-12] MEDS ORDERED: Lactated Ringer's 1,000 ML IV ONE (11:15)
[2024-05-12 11:41] LABS: BASOPHILS ABSOLUTE AUTO 0.01 K/mm3 (0.00-0.23); BASOPHILS PERCENT AUTO 0 % (0-2); EOSINOPHILS ABSOLUTE AUTO 0.06 K/mm3 (0.00-0.68); EOSINOPHILS PERCENT AUTO 2 % (0-6); Hematocrit 35.1 % (37.0-53.0); Hemoglobin 11.7 g/dL (13.5-17.5); IMMATURE GRAN ABSOLUTE AUTO 0.04 K/mm3 (0.00-0.10); IMMATURE GRAN PERCENT AUTO 1 % (0-1); LYMPHOCYTES ABSOLUTE AUTO 0.41 K/mm3 (0.84-5.20); LYMPHOCYTES PERCENT AUTO 12 % (21-46); MONOCYTES ABSOLUTE AUTO 0.14 K/mm3 (0.16-1.47); MONOCYTES PERCENT AUTO 4 % (4-13); Mean Corpuscular HGB 33.9 pg (26.0-34.0); Mean Corpuscular HGB Conc 33.3 g/dL (31.5-36.5); Mean Corpuscular Volume 102 fL (80-100); Mean Platelet Volume 10.3 fL (9.1-12.4); NEUTROPHILS ABSOLUTE AUTO 2.67 K/mm3 (1.96-9.15); NEUTROPHILS PERCENT AUTO 80 % (41-73); Platelet Count 151 K/mm3 (150-400); RDW Standard Deviation 55.3 fL (35.1-46.3); Red Blood Cell Count 3.45 M/mm3 (4.30-5.90); White Blood Cell Count 3.33 K/mm3 (4.00-11.30)
[2024-05-12 12:09] LABS: Source, Urine Clean Catch
[2024-05-12] MEDS ORDERED: POTCHL20ER PO (12:11)
[2024-05-12] MEDS ORDERED: TRAZ100 PO (12:11)
[2024-05-12 12:14] LABS: Albumin, Blood 2.7 g/dL (3.4-5.0); Albumin/Globulin Ratio 0.7 (0.8-1.8); Bilirubin, Total 1.1 mg/dL (0.1-1.0); Bun/Creatinine Ratio 22.5 (12.0-20.0); Creatinine, Blood 0.84 mg/dL (0.60-1.20); Globulin, Blood 3.8 g/dL (2.2-4.0); Potassium, Blood 4.1 mmol/L (3.5-5.5); Total Protein, Blood 6.5 g/dL (6.4-8.2)
[2024-05-12 12:22] LABS: Influenza A, PCR NEGATIVE (NEGATIVE); Influenza B, PCR NEGATIVE (NEGATIVE); Resp Syncytial Virus, PCR NEGATIVE (NEGATIVE)
[2024-05-12 12:23] LABS: Appearance, Urine Clear (Clear); Bilirubin, Urine Neg (Neg); Blood, Urine Neg (Neg); Color, Urine Yellow (P-Yellow); Glucose Qualitative, Urine Neg (Neg); Ketones, Urine 2+ (Neg); Leukocyte Esterase, Urine Neg (Neg); Nitrite, Urine Neg (Neg); Protein, Urine 1+ (Neg); Specific Gravity, Urine 1.015 (1.003-1.022); Urobilinogen, Urine 1+ (Normal); pH, Urine 6.5 (5.0-8.0)
[2024-05-12] MEDS ORDERED: Ibuprofen 400 MG Tab PO ONE (12:30)
[2024-05-12] MEDS ORDERED: Acetaminophen 500 MG Tab PO ONE (12:30)
[2024-05-12 12:35] LABS: SARS-Cov-2 (COVID-19) PCR, MMC POSITIVE (NEGATIVE)
[2024-05-12 14:01] VITALS: BP 144/84
== END 2024-05-12 14:17 | disposition home or self-care (01) ==
LOC: ER 11:02
PROVIDERS: Emergency Medicine
DX: U07.1 COVID-19 (principal); E86.0 Dehydration; Z79.82 Long term (current) use of aspirin; Z79.52 Long term (current) use of systemic steroids; Z79.899 Other long term (current) drug therapy; Z88.1 Allergy status to other antibiotic agents; Z91.048 Other nonmedicinal substance allergy status
CPT/HCPCS: 0241U; 71045; 80053; 85025; 96360; 99285-25; A9270; J7120

== ENCOUNTER 2024-06-06 01:48 | Day surgery (SDC) | payer OTHER ==
[~2024-06-06 01:48] MED LIST changes: +POTCHL20ER PO; +TRAZ100 PO
== END 2024-06-06 23:19 | disposition home or self-care (01) ==
LOC: WOUND 01:48
DX: L89.893 Pressure ulcer of other site, stage 3 (principal); T81.31XD Disruption of external operation (surgical) wound, not elsewhere classified, subsequent encounter; M06.9 Rheumatoid arthritis, unspecified; J44.9 Chronic obstructive pulmonary disease, unspecified; L03.115 Cellulitis of right lower limb; S81.812D Laceration without foreign body, left lower leg, subsequent encounter; S81.001D Unspecified open wound, right knee, subsequent encounter; X58.XXXD Exposure to other specified factors, subsequent encounter; Y83.8 Other surgical procedures as the cause of abnormal reaction of the patient, or of later complication, without mention of misadventure at the time of the procedure
CPT/HCPCS: A6213; G0463

== ENCOUNTER 2024-06-26 18:41 | Emergency (ER) | payer OTHER ==
[~2024-06-26] VITALS: Ht 167.6 cm; Wt 90.7 kg
[2024-06-26 19:30] LABS: BASOPHILS ABSOLUTE AUTO 0.02 K/mm3 (0.00-0.23); BASOPHILS PERCENT AUTO 0 % (0-2); EOSINOPHILS ABSOLUTE AUTO 0.18 K/mm3 (0.00-0.68); EOSINOPHILS PERCENT AUTO 3 % (0-6); Hematocrit 33.5 % (37.0-53.0); Hemoglobin 10.5 g/dL (13.5-17.5); IMMATURE GRAN ABSOLUTE AUTO 0.03 K/mm3 (0.00-0.10); IMMATURE GRAN PERCENT AUTO 0 % (0-1); LYMPHOCYTES ABSOLUTE AUTO 0.63 K/mm3 (0.84-5.20); LYMPHOCYTES PERCENT AUTO 9 % (21-46); MONOCYTES ABSOLUTE AUTO 0.41 K/mm3 (0.16-1.47); MONOCYTES PERCENT AUTO 6 % (4-13); Mean Corpuscular HGB 34.2 pg (26.0-34.0); Mean Corpuscular HGB Conc 31.3 g/dL (31.5-36.5); Mean Corpuscular Volume 109 fL (80-100); Mean Platelet Volume 11.1 fL (9.1-12.4); NEUTROPHILS ABSOLUTE AUTO 5.83 K/mm3 (1.96-9.15); NEUTROPHILS PERCENT AUTO 82 % (41-73); Platelet Count 155 K/mm3 (150-400); RDW Coefficient Variation 16.9 % (11.7-14.2); RDW Standard Deviation 66.1 fL (35.1-46.3); Red Blood Cell Count 3.07 M/mm3 (4.30-5.90)
[2024-06-26 19:55] LABS: Albumin/Globulin Ratio 0.9 (0.8-1.8); Bilirubin, Total 0.4 mg/dL (0.1-1.0); Bun/Creatinine Ratio 21.6 (12.0-20.0); Creatinine, Blood 0.92 mg/dL (0.60-1.20); Globulin, Blood 3.4 g/dL (2.2-4.0); Potassium, Blood 4.2 mmol/L (3.5-5.5); Total Protein, Blood 6.4 g/dL (6.4-8.2)
[2024-06-26 20:19] VITALS: BP 117/64
[2024-07-05] MEDS ORDERED: FOLI1 PO (09:46)
[2024-07-05] MEDS ORDERED: MULVITA PO (09:47)
[2024-07-05] MEDS ORDERED: LASIX20 M2 PO (09:47)
[2024-07-05] MEDS ORDERED: NIAC500 PO (09:48)
== END 2024-06-26 22:23 | disposition home or self-care (01) ==
LOC: ER 18:41
PROVIDERS: Student in an Organized Health Care Education/Training Program
DX: M79.604 Pain in right leg (principal); M79.661 Pain in right lower leg; Z91.09 Other allergy status, other than to drugs and biological substances; Z88.8 Allergy status to other drugs, medicaments and biological substances; Z79.52 Long term (current) use of systemic steroids; Z79.899 Other long term (current) drug therapy; Z79.82 Long term (current) use of aspirin; Z96.653 Presence of artificial knee joint, bilateral; Z96.641 Presence of right artificial hip joint
CPT/HCPCS: 80053; 85025; 93971; 99284-25

== ENCOUNTER → 2024-06-29 | Outpatient (CLI) | payer OTHER ==
[~2024-06-29] MED LIST changes: +CLOP75 PO; +FOLI1 PO; +LASIX20 M2 PO; +MULVITA PO; +PANT20 PO; +[UNRECOGNIZED DRUG - CODE] PO
[2024-06-29 16:28] LABS: BASOPHILS ABSOLUTE AUTO 0.01 K/mm3 (0.00-0.23); BASOPHILS PERCENT AUTO 0 % (0-2); EOSINOPHILS ABSOLUTE AUTO 0.04 K/mm3 (0.00-0.68); EOSINOPHILS PERCENT AUTO 1 % (0-6); Hematocrit 32.6 % (37.0-53.0); Hemoglobin 10.2 g/dL (13.5-17.5); IMMATURE GRAN ABSOLUTE AUTO 0.03 K/mm3 (0.00-0.10); IMMATURE GRAN PERCENT AUTO 0 % (0-1); LYMPHOCYTES ABSOLUTE AUTO 0.25 K/mm3 (0.84-5.20); LYMPHOCYTES PERCENT AUTO 4 % (21-46); MONOCYTES PERCENT AUTO 1 % (4-13); Mean Corpuscular HGB 33.9 pg (26.0-34.0); Mean Corpuscular HGB Conc 31.3 g/dL (31.5-36.5); Mean Corpuscular Volume 108 fL (80-100); Mean Platelet Volume 10.7 fL (9.1-12.4); NEUTROPHILS ABSOLUTE AUTO 6.54 K/mm3 (1.96-9.15); NEUTROPHILS PERCENT AUTO 94 % (41-73); Platelet Count 157 K/mm3 (150-400); RDW Coefficient Variation 16.2 % (11.7-14.2); Red Blood Cell Count 3.01 M/mm3 (4.30-5.90); White Blood Cell Count 6.97 K/mm3 (4.00-11.30)
[2024-06-29 17:05] LABS: Albumin/Globulin Ratio 0.9 (0.8-1.8); Bilirubin, Total 1.1 mg/dL (0.1-1.0); Bun/Creatinine Ratio 23.6 (12.0-20.0); Calcium, Blood 8.7 mg/dL (8.5-10.1); Creatinine, Blood 0.97 mg/dL (0.60-1.20); Globulin, Blood 3.2 g/dL (2.2-4.0); Potassium, Blood 4.7 mmol/L (3.5-5.5); Total Protein, Blood 6.2 g/dL (6.4-8.2)
== END ==
LOC: LAB SHORT 15:05 → LAB 15:05
PROVIDERS: Internal Medicine Rheumatology
DX: M06.9 Rheumatoid arthritis, unspecified (principal)
CPT/HCPCS: 80053; 85025; 85651

== ENCOUNTER 2024-07-06 08:54 | Inpatient (IN) | payer OTHER ==
[~2024-07-06] VITALS: Ht 167.6 cm; Wt 89.9 kg
[2024-07-06] VITALS (18 sets, daily range): BP systolic 94–177; BP diastolic 49–159
[~2024-07-06 08:54] MED LIST changes: -CLOP75 PO; -PANT20 PO; -[UNRECOGNIZED DRUG - CODE] PO
[2024-07-06] MEDS ORDERED: NS 1,000 ML IV ONE (11:01)
[2024-07-06] MEDS ORDERED: Midazolam HCl 1MG / ML 2ML Vial ONE (11:01)
[2024-07-06] MEDS ORDERED: FentaNYL Citrate 50 MCG/ML 2 ML Injection ONE ×2 (11:01→12:52)
[2024-07-06] MEDS ORDERED: Heparin Sodium 1000 Units/ML 10ML MDV ONE (12:11)
[2024-07-06] MEDS ORDERED: Alteplase Recombinant 2 MG / Vial ONE ×2 (13:01→13:17)
[2024-07-06] MEDS ORDERED: Alteplase 1 MG/ML 25 MG in NS 250 ML IV SCH (13:25)
[2024-07-06] MEDS ORDERED: Heparin Sodium,Porcine/0.5 NS 500 ML IV SCH (13:45)
[2024-07-06] MEDS ORDERED: Midazolam HCl 1MG / ML 2ML Vial IV PRN (14:10)
[2024-07-06] MEDS ORDERED: Ondansetron HCl 2 MG / ML 2ML Vial IV PRN (14:10)
[2024-07-06] MEDS ORDERED: Prochlorperazine Maleate 5 MG Tab PO PRN (14:10)
[2024-07-06] MEDS ORDERED: Prochlorperazine Edisylate 10 mg Vial IV PRN ×2 (14:10→17:40)
[2024-07-06] MEDS ORDERED: Melatonin 3 MG Tab PO PRN (14:10)
[2024-07-06] MEDS ORDERED: Ondansetron 4 MG TAB PO PRN (14:15)
[2024-07-06] MEDS ORDERED: FentaNYL Citrate 50 MCG/ML 2 ML Injection IV PRN ×2 (15:40→17:40)
[2024-07-06] MEDS ORDERED: OxyCODONE HCL 5 MG TAB PO PRN (17:35)
[2024-07-06] MEDS ORDERED: Acetaminophen 325 MG TABLET PO PRN (17:35)
[2024-07-06] MEDS ORDERED: NS 1,000 ML IV SCH (17:35)
--- NOTE | 2024-07-06 18:11 | NUR ---
Summary. Pt arrived from clinical laboratory service teacher at approximately 1400. L/groin access site intact with TPA infusing at 2.5 ml/hr and heparin infusing at 10 ml/hr. Pt c/o of tenderness at groin site, prn pain meds given with good effect. Pt vital signs stable this afternoon, no acute events. Plan is to go back to clinical laboratory service teacher in the am per Dr. Freeman. See chart for further details.
[2024-07-06] MEDS ORDERED: CefTRIAXone Sodium 2,000 MG in NS 100 ML IV SCH (18:30)
--- NOTE | 2024-07-06 20:00 | NUR ---
ASSUMED CARE OF PT AT 1900. REPORT RECEIVED AT BEDSIDE. PT ABLE TO PARTICIPATE IN REPORT. LEFT GROIN SITE CHECKED WITH OFFGOING RN. DRESSING UNDER OPSITE WAS SATURATED WITH SEROUSANGEOUS FLUID. DRESSING CHANGED IN STERILE FASHION. PLACED CELESTE DRESSING TO SITE AND NEW OPSITE PLACED. CMS CHECKS DONE BI LAT. PULSES NOTED. PT INFUSING TPA AND HEPARIN PER ORDERS. RATES CHECKED. WILL REVIEW CHART AND PLAN OF CARE FOR THIS PT.
[2024-07-06] MEDS ORDERED: Gabapentin 300 MG Cap PO SCH (21:00)
[2024-07-06] MEDS ORDERED: TraZODone HCl 100 MG Tab PO SCH (21:00)
[2024-07-06] MEDS ORDERED: Lactobacil 2-S.Thermo-Bifido 1 1 Cap PO SCH (21:00)
[2024-07-06] MEDS ORDERED: Carvedilol 6.25 MG Tab PO SCH (21:00)
[2024-07-07] VITALS (39 sets, daily range): BP systolic 87–166; BP diastolic 48–109
[2024-07-07] MEDS ORDERED: [UNRECOGNIZED DRUG - CODE] PO (00:03)
--- NOTE | 2024-07-07 00:09 | NUR ---
OPSITE TO LEFT GROIN HAS SOME OOZING AFTER DRESSING CHANGE WAS DONE. PT DOES CLAIM THAT AREA IS TENDER TO TOUCH. PT HAS BEEN MEDICATED TWICE WITH FENTANYL 25 MCG'S FOR COMPLAINT OF RIGHT FOOT PAIN WELL LEFT GROIN SITE. PT STATES THAT THIS IS AFFECTIVE TO RELIEVE DISCOMFORT.
[2024-07-07 03:23] LABS: BASOPHILS ABSOLUTE AUTO 0.04 K/mm3 (0.00-0.23); BASOPHILS PERCENT AUTO 1 % (0-2); EOSINOPHILS PERCENT AUTO 4 % (0-6); Hematocrit 26.1 % (37.0-53.0); Hemoglobin 8.2 g/dL (13.5-17.5); IMMATURE GRAN ABSOLUTE AUTO 0.04 K/mm3 (0.00-0.10); IMMATURE GRAN PERCENT AUTO 1 % (0-1); LYMPHOCYTES ABSOLUTE AUTO 0.75 K/mm3 (0.84-5.20); LYMPHOCYTES PERCENT AUTO 14 % (21-46); MONOCYTES ABSOLUTE AUTO 0.11 K/mm3 (0.16-1.47); MONOCYTES PERCENT AUTO 2 % (4-13); Mean Corpuscular HGB Conc 31.4 g/dL (31.5-36.5); Mean Corpuscular Volume 108 fL (80-100); Mean Platelet Volume 10.9 fL (9.1-12.4); NEUTROPHILS ABSOLUTE AUTO 4.14 K/mm3 (1.96-9.15); NEUTROPHILS PERCENT AUTO 78 % (41-73); Platelet Count 143 K/mm3 (150-400); RDW Coefficient Variation 16.6 % (11.7-14.2); RDW Standard Deviation 64.5 fL (35.1-46.3); Red Blood Cell Count 2.41 M/mm3 (4.30-5.90); White Blood Cell Count 5.28 K/mm3 (4.00-11.30)
[2024-07-07 03:58] LABS: Bun/Creatinine Ratio 35.7 (12.0-20.0); Calcium, Blood 8.2 mg/dL (8.5-10.1); Creatinine, Blood 0.87 mg/dL (0.60-1.20); Potassium, Blood 4.7 mmol/L (3.5-5.5)
[2024-07-07] MEDS ORDERED: Heparin Sodium 1000 Units/ML 10ML MDV ONE (06:39)
[2024-07-07] MEDS ORDERED: NS 1,000 ML IV ONE ×2 (06:39→06:59)
[2024-07-07] MEDS ORDERED: NS 500 ML IV ONE (06:39)
--- NOTE | 2024-07-07 06:50 | NUR ---
PT TAKEN TO CHOPPING MACHINE OPERATOR
--- NOTE | 2024-07-07 06:57 | NUR ---
PT LEAVES FOR CLERICAL OFFICE FOR RECHECK OF VASCULATURE OF RIGHT LOWER EXTREMITY. PT HAS NO COMPLAINTS OF PAIN THIS AM. REPORT GIVEN AT BEDSIDE TO ONCOMING RN PT WAS PREPPED TO LEAVE FOR PROCEDURE.
[2024-07-07] MEDS ORDERED: FentaNYL Citrate 50 MCG/ML 2 ML Injection ONE (06:59)
[2024-07-07] MEDS ORDERED: Midazolam HCl 1MG / ML 2ML Vial ONE (06:59)
[2024-07-07] MEDS ORDERED: Clopidogrel Bisulfate 300 MG Cap PO ONE (07:40)
[2024-07-07] MEDS ORDERED: Aspirin 81 MG Chew PO ONE (08:00)
[2024-07-07] MEDS ORDERED: PredniSONE 10 MG Tab PO SCH (09:00)
[2024-07-07] MEDS ORDERED: Lisinopril 20 MG Tab PO SCH (09:00)
[2024-07-07] MEDS ORDERED: Potassium Chloride 20 MEQ TabCR PO SCH (09:00)
[2024-07-07] MEDS ORDERED: Leflunomide 10 MG TABLET PO SCH (09:00)
[2024-07-07] MEDS ORDERED: Furosemide 20 MG Tab PO SCH (09:00)
[2024-07-07] MEDS ORDERED: Citalopram Hydrobromide 20 MG Tab PO SCH (09:00)
[2024-07-07] MEDS ORDERED: PANT20 PO (14:18)
[2024-07-07] MEDS ORDERED: CLOP75 PO (14:18)
--- NOTE | 2024-07-07 15:31 | NUR ---
SUMMARY PT A/O X4. PT WENT TO PRODUCE SPECIALIST THIS AM AND CAME BACK WITH SHEATH IN PLACE. SHEATH WAS REMOVED WITH DR. MCCORMACK AT BEDSIDE AND MANUAL PRESSURE WAS HELD FOR 15 MINUTES AT 1015. SITE IS SOFT, NON TENDER, AND NO SIGNS OF BLEEDING. VITALS REMAIN STABLE. PT DISCHARGED WITH OK FROM DR. MCCORMACK. ASSISTED WITH GETTING DRESSED AND INTO MOTORIZED SCOOTER. SET UP RIDE FOR PT WITH PaperV RIDES AND MET PT DOWN STAIRS. NO SIGN OF DISTRESS THE PT LEAVES.
[2024-07-09] MEDS ORDERED: Methotrexate Sod 2.5 MG Tab PO SCH (09:00)
== END 2024-07-07 15:10 | disposition home or self-care (01) | DRG 300 ==
LOC: MHTC 08:54 → ICUE 14:16 → MHTC 17:52 → ICUE 17:53
PROVIDERS: Student in an Organized Health Care Education/Training Program; ADMIT Internal Medicine
PROC: 3E03317 Introduction of Other Thrombolytic into Peripheral Vein, Percutaneous Approach (ICD-10-PCS; 2024-07-06)
PROC: B41F1ZZ Fluoroscopy of Right Lower Extremity Arteries using Low Osmolar Contrast (ICD-10-PCS; principal; 2024-07-07)
DX: I74.3 Embolism and thrombosis of arteries of the lower extremities (principal); I13.0 Hypertensive heart and chronic kidney disease with heart failure and stage 1 through stage 4 chronic kidney disease, or unspecified chronic kidney disease; L03.115 Cellulitis of right lower limb; I73.9 Peripheral vascular disease, unspecified; L97.521 Non-pressure chronic ulcer of other part of left foot limited to breakdown of skin; M06.9 Rheumatoid arthritis, unspecified; Z86.14 Personal history of Methicillin resistant Staphylococcus aureus infection; D63.1 Anemia in chronic kidney disease; F41.9 Anxiety disorder, unspecified; F32.A Depression, unspecified; M54.9 Dorsalgia, unspecified; G89.29 Other chronic pain; I50.9 Heart failure, unspecified; Z79.52 Long term (current) use of systemic steroids; Z79.899 Other long term (current) drug therapy; Z79.811 Long term (current) use of aromatase inhibitors; Z79.82 Long term (current) use of aspirin; Z88.2 Allergy status to sulfonamides; Z88.1 Allergy status to other antibiotic agents; Z88.8 Allergy status to other drugs, medicaments and biological substances; Z91.048 Other nonmedicinal substance allergy status
CPT/HCPCS: 36415; 76937; 80048; 85007; 85025; 85027; 85347; 85384; 85610; 85730; 99152; 99153; A9270; C1714; C1725; C1757; C1769; C1874; C1884; C1887; C1894; C2623; J0696; J1644; J2250; J2997; J3010; J7030; J7040; J7050; J7512; Q9967

== ENCOUNTER 2024-07-13 01:13 | Day surgery (SDC) | payer OTHER ==
[~2024-07-13 01:13] MED LIST changes: +CLOP75 PO; +PANT20 PO; +[UNRECOGNIZED DRUG - CODE] PO
[2024-07-13] MEDS ORDERED: Lidocaine HCl 4% Cream 5 GM ONE (14:33)
== END 2024-07-13 22:50 | disposition home or self-care (01) ==
LOC: WOUND 01:13
DX: T81.33XA Disruption of traumatic injury wound repair, initial encounter (principal); L89.94 Pressure ulcer of unspecified site, stage 4; S81.001A Unspecified open wound, right knee, initial encounter; S81.812A Laceration without foreign body, left lower leg, initial encounter; L03.115 Cellulitis of right lower limb; I87.2 Venous insufficiency (chronic) (peripheral); I73.9 Peripheral vascular disease, unspecified; J44.9 Chronic obstructive pulmonary disease, unspecified; S90.851A Superficial foreign body, right foot, initial encounter; Z48.02 Encounter for removal of sutures; W22.8XXA Striking against or struck by other objects, initial encounter
CPT/HCPCS: 73660; A6213; A9270; G0463

== ENCOUNTER 2024-07-27 02:43 | Day surgery (SDC) | payer OTHER | END 2024-07-27 23:10 | disposition home or self-care (01) | LOC: WOUND 02:43 | DX: T81.33XA Disruption of traumatic injury wound repair, initial encounter (principal); L89.894 Pressure ulcer of other site, stage 4; S81.001A Unspecified open wound, right knee, initial encounter; S81.812A Laceration without foreign body, left lower leg, initial encounter; L03.115 Cellulitis of right lower limb; I87.2 Venous insufficiency (chronic) (peripheral); I73.9 Peripheral vascular disease, unspecified; J44.9 Chronic obstructive pulmonary disease, unspecified; W19.XXXA Unspecified fall, initial encounter | CPT/HCPCS: A6213; G0463 ==

== ENCOUNTER 2024-08-10 02:23 | Day surgery (SDC) | payer OTHER ==
[2024-08-10] MEDS ORDERED: Lidocaine HCl 4% Cream 5 GM ONE (13:46)
== END 2024-08-10 23:00 | disposition home or self-care (01) ==
LOC: WOUND 02:23
DX: T81.30XA Disruption of wound, unspecified, initial encounter (principal); L89.894 Pressure ulcer of other site, stage 4; S81.001A Unspecified open wound, right knee, initial encounter; S81.812A Laceration without foreign body, left lower leg, initial encounter; L03.115 Cellulitis of right lower limb; I87.2 Venous insufficiency (chronic) (peripheral); I73.9 Peripheral vascular disease, unspecified; J44.9 Chronic obstructive pulmonary disease, unspecified
CPT/HCPCS: A6213; A9270

== ENCOUNTER 2024-08-25 02:57 | Day surgery (SDC) | payer OTHER ==
[2024-08-25] MEDS ORDERED: Lidocaine HCl 4% Cream 5 GM ONE (14:58)
== END 2024-08-25 22:58 | disposition home or self-care (01) ==
LOC: WOUND 02:57
DX: L89.894 Pressure ulcer of other site, stage 4 (principal); L89.893 Pressure ulcer of other site, stage 3; M06.9 Rheumatoid arthritis, unspecified; J44.9 Chronic obstructive pulmonary disease, unspecified; T81.30XD Disruption of wound, unspecified, subsequent encounter; S81.001D Unspecified open wound, right knee, subsequent encounter; L03.115 Cellulitis of right lower limb; S81.812D Laceration without foreign body, left lower leg, subsequent encounter; I87.2 Venous insufficiency (chronic) (peripheral); I73.9 Peripheral vascular disease, unspecified; Y83.8 Other surgical procedures as the cause of abnormal reaction of the patient, or of later complication, without mention of misadventure at the time of the procedure
CPT/HCPCS: A6213; A9270; G0463

== ENCOUNTER 2024-09-08 03:48 | Day surgery (SDC) | payer OTHER | END 2024-09-09 00:01 | disposition home or self-care (01) | LOC: WOUND 03:48 | DX: L89.894 Pressure ulcer of other site, stage 4 (principal); L89.893 Pressure ulcer of other site, stage 3; T81.31XD Disruption of external operation (surgical) wound, not elsewhere classified, subsequent encounter; I73.9 Peripheral vascular disease, unspecified; I87.2 Venous insufficiency (chronic) (peripheral); J44.9 Chronic obstructive pulmonary disease, unspecified; I10 Essential (primary) hypertension; M06.9 Rheumatoid arthritis, unspecified | CPT/HCPCS: A6213; G0463 ==

== ENCOUNTER 2024-10-13 08:44 | Day surgery (SDC) | payer OTHER ==
[2024-10-13] VITALS (12 sets, daily range): BP systolic 104–156; BP diastolic 63–95
[~2024-10-13] VITALS: Ht 170.2 cm; Wt 88.5 kg
[~2024-10-13 08:44] MED LIST changes: +GABA300 PO; +ZINC220 PO
[2024-10-13] MEDS ORDERED: FentaNYL Citrate 50 MCG/ML 2 ML Injection ONE (09:27)
[2024-10-13] MEDS ORDERED: Midazolam HCl 1MG / ML 2ML Vial ONE (09:27)
[2024-10-13] MEDS ORDERED: NS 1,000 ML IV ONE ×4 (09:28→10:54)
[2024-10-13] MEDS ORDERED: Heparin Sodium 1000 Units/ML 10ML MDV ONE ×2 (09:30→10:28)
[2024-10-13] MEDS ORDERED: NS 250 ML IV ONE (09:30)
[2024-10-13] MEDS ORDERED: Nitroglycerin 2 MG/20 ML BTL ONE (09:30)
--- NOTE | 2024-10-13 11:40 | NUR ---
PT RETURNED TO RECOVERY ROOM IN BED. LEFT FEMORAL GROIN SITE SOFT WITH NO HEMATOMA, NO PULSATILE BLEEDING AND INTACT DRESSING; PT STATES LEFT GROIN SITE "SORE." BILAT PT PULSES DOPPLER. CALL LIGHT IN REACH.
--- NOTE | 2024-10-13 11:58 | NUR ---
NO CHANGES TO LEFT FEM SITE. BILAT PT'S STILL DOPPLER. PT DRINKING WATER.
[2024-10-13] MEDS ORDERED: XARELTO10 M1 PO (12:00)
--- NOTE | 2024-10-13 12:55 | NUR ---
NO CHANGES L FEM SITE. BILAT PT'S STILL DOPPLER.
--- NOTE | 2024-10-13 12:56 | NUR ---
PT EATING LUNCH.
--- NOTE | 2024-10-13 13:23 | NUR ---
FULL REPORT PROVIED HELDER GANT TO ASSUME CARE OF PT IN RECOVERY ROOM.
--- NOTE | 2024-10-13 13:48 | NUR ---
patient at bedside, dressed with assistance. patient verbalized understanding of discharge instructions and precautions, new prescription at [facility] pharmacy to be picked up, groin site remains soft and nontender, no hematoma, no bleeding dressing D&I. IV site dced with catheter intact
--- NOTE | 2024-10-13 14:30 | NUR ---
patient transferred self by motorized scooter to front entrance, Janak bowens picked up patient at 1440.
== END 2024-10-13 15:21 | disposition home or self-care (01) ==
LOC: MHTC 08:44
DX: I70.221 Atherosclerosis of native arteries of extremities with rest pain, right leg (principal); L97.512 Non-pressure chronic ulcer of other part of right foot with fat layer exposed; I48.91 Unspecified atrial fibrillation; I10 Essential (primary) hypertension; J44.9 Chronic obstructive pulmonary disease, unspecified; F17.220 Nicotine dependence, chewing tobacco, uncomplicated; Z79.82 Long term (current) use of aspirin; Z79.02 Long term (current) use of antithrombotics/antiplatelets; Z79.1 Long term (current) use of non-steroidal anti-inflammatories (NSAID); Z79.899 Other long term (current) drug therapy; Z88.2 Allergy status to sulfonamides; Z88.8 Allergy status to other drugs, medicaments and biological substances
CPT/HCPCS: 37184; 37185; 37191; 37193; 37227; 37229; 37232; 75716; 75774; 76937; 85347; 99152; 99153; C1714; C1725; C1760; C1769; C1874; C1884; C1887; C1894; J1644; J2250; J3010; J7030; J7050; Q9967

== ENCOUNTER 2024-10-20 04:00 | Day surgery (SDC) | payer OTHER ==
[~2024-10-20 04:00] MED LIST changes: +XARELTO10 M1 PO
== END 2024-10-20 23:00 | disposition home or self-care (01) ==
LOC: WOUND 04:00
DX: L89.893 Pressure ulcer of other site, stage 3 (principal); L89.894 Pressure ulcer of other site, stage 4; T81.30XD Disruption of wound, unspecified, subsequent encounter; S81.001D Unspecified open wound, right knee, subsequent encounter; L03.115 Cellulitis of right lower limb; I87.2 Venous insufficiency (chronic) (peripheral); I73.9 Peripheral vascular disease, unspecified; Y84.8 Other medical procedures as the cause of abnormal reaction of the patient, or of later complication, without mention of misadventure at the time of the procedure; X58.XXXD Exposure to other specified factors, subsequent encounter
CPT/HCPCS: A6213; G0463

== ENCOUNTER 2024-11-10 04:50 | Day surgery (SDC) | payer OTHER | END 2024-11-10 23:00 | disposition home or self-care (01) | LOC: WOUND 04:50 | DX: L89.894 Pressure ulcer of other site, stage 4 (principal); L89.893 Pressure ulcer of other site, stage 3; T81.31XD Disruption of external operation (surgical) wound, not elsewhere classified, subsequent encounter; I87.2 Venous insufficiency (chronic) (peripheral); I73.9 Peripheral vascular disease, unspecified; J44.9 Chronic obstructive pulmonary disease, unspecified; M06.9 Rheumatoid arthritis, unspecified | CPT/HCPCS: A6213; G0463 ==

== ENCOUNTER 2024-11-24 03:07 | Day surgery (SDC) | payer OTHER ==
[2024-11-24] MEDS ORDERED: Lidocaine HCl 4% Cream 5 GM ONE (15:33)
== END 2024-11-24 23:00 | disposition home or self-care (01) ==
LOC: WOUND 03:07
DX: L89.893 Pressure ulcer of other site, stage 3 (principal); L89.894 Pressure ulcer of other site, stage 4; T81.30XD Disruption of wound, unspecified, subsequent encounter; S81.001D Unspecified open wound, right knee, subsequent encounter; J44.9 Chronic obstructive pulmonary disease, unspecified; M06.9 Rheumatoid arthritis, unspecified; M25.561 Pain in right knee; L03.115 Cellulitis of right lower limb; I87.2 Venous insufficiency (chronic) (peripheral); I73.9 Peripheral vascular disease, unspecified; Y83.8 Other surgical procedures as the cause of abnormal reaction of the patient, or of later complication, without mention of misadventure at the time of the procedure; X58.XXXD Exposure to other specified factors, subsequent encounter
CPT/HCPCS: A6213; A9270; G0463

== ENCOUNTER 2024-12-08 06:31 | Day surgery (SDC) | payer OTHER ==
[2024-12-08] MEDS ORDERED: Lidocaine HCl 4% Cream 5 GM ONE (15:12)
[2024-12-08] MEDS ORDERED: Silver Nitr/Potassium Nitrate 1 EA APPL ONE (15:24)
== END 2024-12-08 23:00 | disposition home or self-care (01) ==
LOC: WOUND 06:31
DX: L89.894 Pressure ulcer of other site, stage 4 (principal); L89.893 Pressure ulcer of other site, stage 3; T81.31XD Disruption of external operation (surgical) wound, not elsewhere classified, subsequent encounter; I87.2 Venous insufficiency (chronic) (peripheral); I73.9 Peripheral vascular disease, unspecified; J44.9 Chronic obstructive pulmonary disease, unspecified; M06.9 Rheumatoid arthritis, unspecified
CPT/HCPCS: A6213; A9270